=== PATIENT | female | born 1995 | race Caucasian/White ===

== ENCOUNTER → 2021-08-27 15:22 | Outpatient (BNVA) | payer OTHER, SELFPAY | PROVIDERS: Referring Provider Hospitalist; Visit Provider Physician Assistant ==

== ENCOUNTER → 2021-09-03 07:52 | Outpatient (BNVA) | payer OTHER, SELFPAY | PROVIDERS: Visit Provider Surgery ==

== ENCOUNTER 2021-09-06 06:12 | Outpatient (REF) | payer OTHER, SELFPAY ==
--- NOTE | ~2021-09-06 | XR_ITS ---
EXAMINATION: XR CHEST CLINICAL INFORMATION: Moderate/severe obesity due to excess calories COMPARISON: None TECHNIQUE: 2 views of the chest were obtained. FINDINGS: No significant abnormality is noted involving the heart, lungs, mediastinum, bony thorax or soft tissues. XR/XR chest 2V IMPRESSION: Unremarkable chest examination.
[2021-09-06 06:29] LABS: MANUAL DIFF FLAG NO
--- NOTE | 2021-09-06 06:35 | ECG_ITS ---
Test Reason : obesity Blood Pressure : / mmHG Vent. Rate : 067 BPM Atrial Rate : 067 BPM P-R Int : 146 ms QRS Dur : 078 ms QT Int : 396 ms P-R-T Axes : 042 020 032 degrees QTc Int : 418 ms Normal sinus rhythm with sinus arrhythmia Normal ECG No previous ECGs available Referred By: Elio Ferrer Electronically Signed By:CAROLINA PEREZ
[2021-09-06 07:36] LABS: Estimated Average Glucose 105 mg/dL; Hemoglobin A1c % 5.3 %
[2021-09-06 07:42] LABS: Basophils Absolute Auto 0.1 X10*3/uL (0.0-0.2); Basophils Percent Auto 0.6 % (0-2); Eosinophils Absolute Auto 0.4 X10*3/uL (0.0-0.4); Hematocrit 41.7 % (37.0-47.0); Hemoglobin 13.4 g/dl (12.0-16.0); Imm Gran Abs Auto 0.01 X10*3/uL (0.00-0.03); Imm Gran Pct Auto 0.1 % (0.0-0.4); Lymphocytes Absolute Auto 3.7 X10*3/uL (1.2-4.9); Mean Corpuscular HGB Conc 32.1 g/dl (31.0-35.0); Mean Corpuscular Hemoglobin 27.6 pg (27.0-33.0); Mean Platelet Volume 10.7 fL (9.4-12.3); Monocytes Absolute Auto 0.5 X10*3/uL (0.1-1.2); Monocytes Percent Auto 5.6 % (2-11); Neutrophils Absolute Auto 3.9 x10*3/uL (2.0-8.3); Neutrophils Percent Auto 45.7 % (45-73); Platelet Count 353 X10*3/uL (160-400); Red Blood Count 4.85 X10*6/uL (4.20-5.50); Red Cell Distribution Width 12.9 % (11.0-16.0); White Blood Count 8.5 X10*3/uL (4.8-10.8)
[2021-09-06 07:55] LABS: Alanine Aminotransferase 18 U/L (0-31); Albumin Level 4.4 g/dL (3.5-5.0); Alkaline Phosphatase 58 U/L (39-117); Anion Gap 12 (12-20); Aspartate Amino Transferase 17 U/L (5-31); Bilirubin Total 1.2 mg/dL (0.0-1.0); Blood Urea Nitrogen 13 mg/dL (9-16); C Reactive Protein 0.39 mg/dL (< or = 0.50); Calcium 9.4 mg/dL (8.4-10.2); Carbon Dioxide 26 mmol/L (22-29); Chloride 106 mmol/L (96-108); Cholesterol 197 mg/dL; Estimated Glomerular Filt Rate > 60; Glucose Random 89 mg/dL (60-115); HDL Cholesterol 42 mg/dL; Iron 98 mcg/dL (30-160); LDL Cholesterol Calculated 130 mg/dl; Percent Iron Saturation 24 % (15-50); Potassium 4.2 mmol/L (3.3-5.1); Sodium 140 mmol/L (135-145); Total Iron Binding Capacity 409 mcg/dL (228-428); Total Protein 7.3 g/dL (6.5-8.0); Triglycerides 125 mg/dL; Unsaturated Iron Binding 311 ug/dL
[2021-09-06 08:18] LABS: Insulin 9 uU/mL (2-29); TSH reflex Free T4 4.79 uIU/mL (0.32-4.0); Vitamin D 25-OH Total 11.1 ng/mL (>30)
[2021-09-06 08:29] LABS: Folate 11.6 ng/mL (> or = 4.0); Vitamin B12 480 pg/mL (200-900)
[2021-09-06 08:31] LABS: Ferritin 34 ng/mL (10-122)
[2021-09-06 09:11] LABS: Free T4 (Free Thyroxine) 0.94 ng/dL (0.71-1.85)
[2021-09-07 15:05] LABS: PTHI 69 pg/mL (14-64)
[2021-09-09 06:51] LABS: Zinc 83 mcg/dL (60-130)
[2021-09-09 18:56] LABS: Vitamin B1 12 nmol/L (8-30)
[2021-09-09 19:42] LABS: Vitamin A 45 mcg/dL (38-98)
== END 2021-09-06 06:13 | disposition home or self-care (01) ==
LOC: HO.LAB 06:12
PROVIDERS: PCP Hospitalist; Visit Provider Surgery
DX: E66.01 Morbid (severe) obesity due to excess calories (principal)
CPT/HCPCS: 36415; 71046; 80053; 80061; 82306; 82607; 82728; 82746; 83036; 83525; 83540; 83970; 84425; 84439; 84443; 84590; 84630; 85025; 86140; 93005

== ENCOUNTER 2021-09-20 08:37 | Outpatient (REF) | payer OTHER, SELFPAY ==
[2021-09-21 13:40] LABS: H Pylori Breath Test Negative (Negative)
== END 2021-09-20 08:38 | disposition home or self-care (01) ==
LOC: HO.LNP 08:37
PROVIDERS: Surgery; PCP Hospitalist; Referring Provider Hospitalist; Visit Provider Physician Assistant
DX: E66.01 Morbid (severe) obesity due to excess calories (principal)
CPT/HCPCS: 83013

== ENCOUNTER → 2021-10-06 08:13 | Outpatient (BNVA) | payer OTHER, SELFPAY | PROVIDERS: PCP Hospitalist; Visit Provider Surgery ==

== ENCOUNTER → 2021-10-12 08:08 | Outpatient (BNVA) | payer OTHER, SELFPAY | PROVIDERS: PCP Hospitalist; Visit Provider Dietitian, Registered | DX: E66.9 Obesity, unspecified (principal); Z68.39 Body mass index [BMI] 39.0-39.9, adult | CPT/HCPCS: 97802 ==

== ENCOUNTER 2021-10-25 08:12 | Outpatient (REF) | payer OTHER, SELFPAY ==
--- NOTE | ~2021-10-25 | US_ITS ---
EXAMINATION: US COMPLETE ABDOMEN WITH LIVER ELASTOGRAPHY CLINICAL INFORMATION: Obesity COMPARISON: None TECHNIQUE: Real-time imaging of the abdominal viscera. Noninvasive ultrasound liver fibrosis assessment is performed using Rupali ElastPQ point quantification shear wave elastography (2D-SWE) with a C5-2 MHz transducer. Multiple elastography samples are obtained. FINDINGS: PANCREAS: Not well visualized due to bowel gas. ABDOMINAL AORTA: The proximal, middle, and distal aortic segments are normal in caliber. INFERIOR VENA CAVA: Visualized portions are normal. LIVER: Liver echotexture is slightly increased. There is a 2.4 x 1.4 x 2.4 cm hyperechoic lesion in the right lobe of the liver. No other focal liver lesion is seen. There is no biliary duct dilatation. The right lobe measures 15 cm in length. The left lobe measures 10 cm in length. Portal flow is normal/hepatopedal. Shear wave liver elastography median stiffness is 1.6 m/s (reference: normal median stiffness is 1.3 m/s or less). IQR/median stiffness to assess sampling precision is 0.14 (reference: good quality data set is IQR/median stiffness of 0.15 or less). GALLBLADDER: There may be a phrygian cap. The gallbladder is physiologically distended without evidence of stones, sludge, polyps, wall thickening or pericholecystic fluid. COMMON BILE DUCT: Normal in caliber measuring 0.2 cm in diameter. RIGHT KIDNEY: Normal. No hydronephrosis. No renal calculi or focal parenchymal lesions. The kidney measures 11.8 cm in maximum dimension. LEFT KIDNEY: There are echogenic densities in the cortex of the kidney questionable for cortical calcifications versus stones. The largest measures 5 mm. No hydronephrosis. No renal calculi or focal parenchymal lesions. The kidney measures 11 cm in maximum dimension. SPLEEN: Normal. The spleen measures 10 cm in maximum dimension. FREE FLUID: None. US/US abdomen comp w elastography IMPRESSION: 1. Slightly echogenic liver probably representing fatty infiltration. 2.4 x 1.4 x 2.4 cm echogenic lesion in the right lobe of the liver. This may represent a benign hemangioma. This could be confirmed with liver MRI if clinically indicated. Question cortical calcifications versus stones in the left kidney. Limited visualization of the pancreas. 2. Liver elastography: Adequate liver sampling. In the absence of other known clinical signs, rules out compensated advanced chronic liver disease. REFERENCE: Society of Radiologists in Ultrasound Liver Stiffness Thresholds (2020): LIVER STIFFNESS THRESHOLDS: *Liver Stiffness equal or less than 1.3 m/s: High probability of being normal. *Liver Stiffness less than 1.7 m/s: In the absence of other known clinical signs, rules out compensated advanced chronic liver disease. *Liver Stiffness 1.7-2.1 m/s: Suggestive of compensated advanced chronic liver disease but need further test for confirmation. *Liver Stiffness over 2.1 m/s: Rules in compensated advanced chronic liver disease. *Liver Stiffness over 2.4 m/s: Suggestive of clinically significant portal hypertension. QUALITY OF DATA SET: *IQR/Median value equal or less than 0.15 implies a quality data set. *IQR/Median value over 0.15 implies a poor quality data set. SIGNIFICANT CHANGE FROM PRIOR EXAM: Significant change if liver stiffness measurement is 10% or greater from prior exam. OTHER CONSIDERATIONS: The stage of liver fibrosis may be overestimated in the setting of acute hepatitis, liver inflammation, elevated liver function tests, hepatic vascular congestion, obstructive cholestasis, nonfasting state, and infiltrative diseases such as amyloidosis and lymphoma. In some patients with NAFLD, the liver stiffness thresholds for compensated advanced chronic liver disease may be lower. In causes other than viral hepatitis and NAFLD, liver stiffness thresholds are not well established.
--- NOTE | ~2021-10-25 | FL_ITS ---
EXAMINATION: XR FLUOROSCOPY UPPER GI WITH AIR CLINICAL INFORMATION: Moderate/severe obesity due to excess calories. COMPARISON: None. TECHNIQUE: Routine upper GI air-contrast study was performed. FINDINGS: Following oral administration of thick barium and effervescent granules, there is normal propagation of bolus from the oral cavity through the pharynx and esophagus and into the stomach without any evidence of obstruction, narrowing or stricture. On placing patient supine and prone lying, the course, caliber and peristalsis of the stomach, duodenal bulb and the sweep are normal. The mucosal pattern of the stomach and the duodenum is normal. No gastroesophageal reflux or hiatal hernia seen. FLUOROSCOPY TIME: 2.3 minutes DOSE AREA PRODUCT: 28.893 uGy-m2 (microgray-meter squared). FL/FL upper GI w air IMPRESSION: Unremarkable upper GI air-contrast study.
== END 2021-10-25 08:13 | disposition home or self-care (01) ==
LOC: HO.US 08:12
PROVIDERS: Visit Provider Surgery
DX: E66.01 Morbid (severe) obesity due to excess calories (principal)
CPT/HCPCS: 74246; 76705; 76981

== ENCOUNTER → 2021-11-10 08:10 | Outpatient (BNVA) | payer OTHER, SELFPAY | PROVIDERS: PCP Hospitalist; Visit Provider Surgery | DX: Z13.89 Encounter for screening for other disorder (principal) ==

== ENCOUNTER → 2021-12-08 08:15 | Outpatient (BNVA) | payer OTHER, SELFPAY | PROVIDERS: PCP Hospitalist; Visit Provider Surgery | DX: E66.9 Obesity, unspecified (principal) ==

== ENCOUNTER → 2021-12-10 12:53 | Outpatient (BNVA) | payer OTHER, SELFPAY | PROVIDERS: PCP Hospitalist; Referring Provider Hospitalist; Visit Provider Surgery | DX: Z13.89 Encounter for screening for other disorder (principal) ==

== ENCOUNTER 2021-12-16 10:47 | Inpatient (IN) | payer OTHER, SELFPAY ==
[2021-12-08 11:41] VITALS: BMI 35.6
[2021-12-09 06:30] LABS: MANUAL DIFF FLAG NO
[2021-12-09 06:53] LABS: Basophils Absolute Auto 0.1 X10*3/uL (0.0-0.2); Basophils Percent Auto 0.7 % (0-2); Eosinophils Absolute Auto 0.4 X10*3/uL (0.0-0.4); Eosinophils Percent Auto 4.7 % (0-4); Hematocrit 40.5 % (37.0-47.0); Hemoglobin 13.2 g/dl (12.0-16.0); Imm Gran Abs Auto 0.02 X10*3/uL (0.00-0.03); Imm Gran Pct Auto 0.3 % (0.0-0.4); Mean Corpuscular HGB Conc 32.6 g/dl (31.0-35.0); Mean Corpuscular Volume 85.8 fL (80.0-98.0); Mean Platelet Volume 11.8 fL (9.4-12.3); Monocytes Absolute Auto 0.5 X10*3/uL (0.1-1.2); Monocytes Percent Auto 6.7 % (2-11); Neutrophils Absolute Auto 3.7 x10*3/uL (2.0-8.3); Neutrophils Percent Auto 48.6 % (45-73); Platelet Count 267 X10*3/uL (160-400); Red Blood Count 4.72 X10*6/uL (4.20-5.50); Red Cell Distribution Width 13.3 % (11.0-16.0); White Blood Count 7.6 X10*3/uL (4.8-10.8)
[2021-12-09 07:07] LABS: INTERNATIONAL NORM RATIO 1.2 (0.9-1.1); Prothrombin Time 13.1 SEC (9.9-13.0)
[2021-12-09 07:10] LABS: Partial Thromboplastin Time 34.2 SEC (24.1-38.0)
[2021-12-09 07:31] LABS: Alanine Aminotransferase 80 U/L (0-31); Albumin Level 4.3 g/dL (3.5-5.0); Alkaline Phosphatase 56 U/L (39-117); Anion Gap 13 (12-20); Aspartate Amino Transferase 29 U/L (5-31); Bilirubin Total 1.4 mg/dL (0.0-1.0); Blood Urea Nitrogen 11 mg/dL (9-16); C Reactive Protein 0.24 mg/dL (< or = 0.50); Calcium 9.6 mg/dL (8.4-10.2); Carbon Dioxide 25 mmol/L (22-29); Chloride 106 mmol/L (96-108); Cholesterol 163 mg/dL; Creatinine Clr Calc Pharmacy 113.8; Estimated Glomerular Filt Rate > 60; Glucose Random 83 mg/dL (60-115); HDL Cholesterol 35 mg/dL; LDL Cholesterol Calculated 113 mg/dl; Potassium 3.8 mmol/L (3.3-5.1); Sodium 140 mmol/L (135-145); Total Protein 6.8 g/dL (6.5-8.0); Triglycerides 75 mg/dL
[2021-12-09 08:05] LABS: Estimated Average Glucose 100 mg/dL; Hemoglobin A1c % 5.1 %
[2021-12-10 11:05] LABS: Insulin 9 uU/mL (2-29)
--- NOTE | 2021-12-10 18:02 | MHC.SHP ---
Pre-Procedural Eval Section A Date of Service: 12/10/21 The patient is an INPATIENT: Yes The History & Physical has been completed within 30 days and I have reviewed it.: Yes Section B Chief Complaint: obesity Relevant Family History (Specify if Yes): No Relevant Social History: None Present Medications: None Medical History: No relevant PMH History of Previous Operations: No relevant previous surgery Allergies: Allergies Allergy/AdvReac Type Severity Reaction Status Date / Time oxycodone Allergy Mild Rash Verified 12/08/21 12:01 Review of Systems Sugical H&P ROS: Negative: Constitution, Cardiovascular, Respiratory, Neurological, Psychiatric, Hem-Onc, Allergic/Immunologic, Gastrointestinal, Genitourinary, Musculoskeletal, Integumentary, Endocrine and Eyes/Ears/Nose/Throat Exam Surgical H&P Exam: Normal: HEENT, Normal: Heart, Normal: Lungs, Normal: Extremities, Normal: Abdomen, Normal: Skin and Normal: Neurological Plan Diagnosis/Plan: Unchanged I have reviewed the history and physical and performed a pertinent physical examination on my patient. No changes have occurred unless specified.
--- NOTE | 2021-12-15 09:17 | HO.ANESPROP2 ---
Documented by User: Cee Baker NP 12/15/21 09:18 HPI - Anesthesia Eval Consult details Narrative: 26yo F for Gastrectomy Sleeve,EGD,poss diaphragmatic hernia,poss ventral hernia,poss open, PMFSH Active Problems Active Problems: All Active Problems (Updated 12/08/21 @ 12:02 by Elio Ferrer MD) BMI 36.0-36.9,adult (Acute) Vitamin D deficiency (Acute) Hypothyroidism (Acute) Adjustment disorder with mixed anxiety and depressed mood (Acute) Obesity (Acute) BMI 39.0-39.9,adult (Acute) BMI 37.0-37.9, adult (Acute) Back pain (Acute) Morbid obesity (Acute) Past Medical History Medical History (Updated 12/16/21 @ 12:54 by Elio Ferrer MD) Back pain Hypothyroidism IUD (intrauterine device) in place Liver fibrosis Morbid obesity Steatosis, liver Family History Family History (Updated 09/02/21 @ 12:44 by Nicole Arellano) Mother Thyroid condition Obesity Anxiety Depression Father No problems noted. Sister No problems noted. Son No problems noted. Surgical History Surgical History (Updated 12/16/21 @ 15:31 by DUSTIN Lentz) History of facial surgery History of wisdom tooth extraction, class I edentulism Hx of section Social History Social History (Updated 09/02/21 @ 12:44 by Nicole Arellano) Are you a primary care information associate to a significant other at home: Yes (4 yr old son) Do you presently have visiting nurse or other home services: No Alcohol intake: current Alcohol intake frequency: does not drink Patient Tobacco Use Status: Former Tobacco user Quit Date: 2016 Tobacco use type: Cigarette Use of substances other than those prescribed or required for medical reasons: No Currently Displaying Signs/Symptoms of Drug Intoxication Withdrawal: No Have you been hit, kicked, punched, or otherwise hurt by someone within the past year? If so, by whom?: No Are you DNR?: No Advance Directives: No Advance Directives Information Provided: Yes Advance Directives on File: No Recently lost weight without trying: No Patient : No FDLMP: 11/27/2021 : No Poor oral hygiene: No service: No Current occupational status: employed Meds Allergies Allergy/AdvReac Type Severity Reaction Status Date / Time oxycodone Allergy Mild Rash Verified 12/08/21 12:01 Exam Exam Date and Time: December 15, 2021 0917 Height,Weight and Vital Signs: Height 5 ft 2 in Weight 88.451 kg Pertinent Lab Results Pertinent Lab Results: Laboratory Tests 12/09/21 12/09/21 12/09/21 06:22 06:29 06:29 WBC 7.6 RBC 4.72 Hgb 13.2 Hct 40.5 MCV 85.8 MCH 28.0 MCHC 32.6 RDW 13.3 Plt Count 267 MPV 11.8 Immature Gran % (Auto) 0.3 Neut % (Auto) 48.6 Lymph % (Auto) 39.0 [place] % (Auto) 6.7 Eos % (Auto) 4.7 H Baso % (Auto) 0.7 Lymph # (Auto) 3.0 [place] # (Auto) 0.5 Eos # (Auto) 0.4 Baso # (Auto) 0.1 Abs Immat Gran (auto) 0.02 Absolute Neuts (auto) 3.7 Absolute Nucleated RBC 0.000 Nucleated RBC % (auto) 0.0 PT 13.1 H INR 1.2 H APTT 34.2 Sodium Potassium Chloride Carbon Dioxide Anion Gap BUN Creatinine Estim Creat Clear Calc Estimated GFR Random Glucose Estimat Average Glucose Hemoglobin A1c % Insulin Level Calcium Total Bilirubin AST ALT Alkaline Phosphatase C-Reactive Protein Total Protein Albumin Triglycerides Cholesterol LDL Cholesterol, Calc HDL Cholesterol TSH Blood Type A Positive Antibody Screen NEGATIVE 12/09/21 12/09/21 06:29 06:29 WBC RBC Hgb Hct MCV MCH MCHC RDW Plt Count MPV Immature Gran % (Auto) Neut % (Auto) Lymph % (Auto) [place] % (Auto) Eos % (Auto) Baso % (Auto) Lymph # (Auto) [place] # (Auto) Eos # (Auto) Baso # (Auto) Abs Immat Gran (auto) Absolute Neuts (auto) Absolute Nucleated RBC Nucleated RBC % (auto) PT INR APTT Sodium 140 Potassium 3.8 Chloride 106 Carbon Dioxide 25 Anion Gap 13 BUN 11 Creatinine 0.76 Estim Creat Clear Calc 113.8 Estimated GFR > 60 Random Glucose 83 Estimat Average Glucose 100 Hemoglobin A1c % 5.1 Insulin Level 9 Calcium 9.6 Total Bilirubin 1.4 H AST 29 D ALT 80 H Alkaline Phosphatase 56 C-Reactive Protein 0.24 Total Protein 6.8 Albumin 4.3 Triglycerides 75 Cholesterol 163 LDL Cholesterol, Calc 113 HDL Cholesterol 35 TSH 3.30 Blood Type Antibody Screen Assessment and Plan Assessment Anesthesia Assessment: Chart Reviewed Documented by User: Lefty Knox MD 12/17/21 13:14 [facility] Past Medical History Medical History (Updated 12/16/21 @ 12:54 by Elio Ferrer MD) Back pain Hypothyroidism IUD (intrauterine device) in place Liver fibrosis Morbid obesity Steatosis, liver Family History Family History (Updated 09/02/21 @ 12:44 by Nicole Arellano) Mother Thyroid condition Obesity Anxiety Depression Father No problems noted. Sister No problems noted. Son No problems noted. Family history of problems with anesthesia: No Surgical History Surgical History (Updated 12/16/21 @ 15:31 by DUSTIN Lentz) History of facial surgery History of wisdom tooth extraction, class I edentulism Hx of section History of Problems with Anesthesia: No Social History Social History (Updated 09/02/21 @ 12:44 by Nicole Arellano) Are you a primary care information associate to a significant other at home: Yes (4 yr old son) Do you presently have visiting nurse or other home services: No Alcohol intake: current Alcohol intake frequency: does not drink Patient Tobacco Use Status: Former Tobacco user Quit Date: 2016 Tobacco use type: Cigarette Use of substances other than those prescribed or required for medical reasons: No Currently Displaying Signs/Symptoms of Drug Intoxication Withdrawal: No Have you been hit, kicked, punched, or otherwise hurt by someone within the past year? If so, by whom?: No Are you DNR?: No Advance Directives: No Advance Directives Information Provided: Yes Advance Directives on File: No Recently lost weight without trying: No Patient : No FDLMP: 11/27/2021 : No Poor oral hygiene: No service: No Current occupational status: employed Meds Allergies Allergy/AdvReac Type Severity Reaction Status Date / Time oxycodone Allergy Mild Rash Verified 12/08/21 12:01 Exam Airway Mallampati Class: II TM Dist: >3cm Neck ROM: Full Loose/Missing/Broken Teeth: No Assessment and Plan Assessment Anesthesia Assessment: Anesthesia Plan Discussed Final Anesthetic Review Family History of Problems with Anesthesia: No History of Problems with Anesthesia: No NPO: Yes ASA Class: II Final Preanesthetic Review: No Changes in Pt Med Stat, Meds/Allgs Chart Reviewed, Consent Obtained/Reviewed and Anes Risks/Benef Reviewed Patient Risk: Intermediate Procedure Risk: Intermediate Anesthetic Plan Anesthetic Plan: GA and Agree w/ Assess. and Plan Disposition: Standard PACU
[2021-12-15 12:54] LABS: COVID-19 Test Negative (Negative)
[2021-12-16] VITALS (10 sets, daily range): BP systolic 107–126; BP diastolic 68–83; PULSE 93–124; RESP 14–23; TEMP 36.7–37; O2SAT 97–100
--- NOTE | 2021-12-16 11:47 | PHA.MEDREC ---
Pharmacy Consult ? Medication Reconciliation Pharmacy has reviewed the medication reconciliation.
[2021-12-16 12:44] LABS: UPreg QC Valid YES; Urine Pregnancy NEGATIVE (NEGATIVE)
--- NOTE | 2021-12-16 12:50 | PM.OP ---
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 The program is a phased program with a special focus on preoperative medical weight management to promote substantial weight loss and prepare the patients for the second phase of the program: bariatric surgery. The patient participated in an intensive weekly lifestyle ?intervention and exercise program during which the patient ?has lost between the initial office visit and the last preoperative visit 33.4 lbs, or 14.7% of initial actual body weight. It was deemed appropriate for the patient to now have bariatric surgery. In light of the current Covid-19 pandemic and the well documented strong association of obesity and increased risk of worse outcomes if infected with Covid-19 (REFERENCES:https://pubmed.ncbi.nlm.nih.gov/24911279/,?https://pubmed.ncbi.nlm.nih.gov/65320033/), any delay in undergoing bariatric surgery may lead to the patient's worsening health condition and increased?risk of more severe Covid-19 disease if infected. In addition a recent?study from [facility] published in [employer] on 08/02/2021 ([email or web address]) found that, among patients with obesity, substantial weight loss achieved with surgery was associated with improved outcomes of COVID-19 infection. The findings suggest that obesity can be a modifiable risk factor for the severity of COVID-19 infection. In addition, the patient met the BMI-criteria for bariatric surgery based on the BMI on initial presentation. The patient should not be penalized for achieving such weight loss because ?it is not sustainable long-term without surgical intervention and it was achieved in preparation for bariatric surgery ?under my direction and based on my published research ([email or web address]).[email or web address] and?https://www.soard.org/article/[email or web address](90)62730-X/pdf) ?that a 10% preoperative weight loss improves long-term weight loss after surgery and reduces perioperative complications.? Insurance carriers such as [employer] have endorsed my recommendations ?and have included in their policies criteria to include a 10% preoperative weight loss requirement. PROCEDURE: Esophago-gastroscopy,, laparoscopic lysis of adhesions, laparoscopic sleeve gastrectomy and laparoscopic gastropexy INDICATIONS: This is a 26 year-old female who was electively scheduled for laparoscopic, possibly open sleeve gastrectomy. The risks and complications of the procedure were discussed with the patient in advance, particularly the possibility of ; pulmonary embolism; staple line leak; bleeding; GERD; cardiac, pulmonary, or renal complications; as well as long-term problems such as insufficient weight loss, vitamin deficiency, strictures, or ulcers. The patient understood all the risks, and was in agreement to proceed with surgery. DESCRIPTION OF PROCEDURE: After informed consent was obtained from the patient, the patient was given preoperative antibiotics, and was transferred to the operating room. After successful induction of general anesthesia, pneumatic compression devices were placed on both lower extremities. An upper endoscopy was performed next. The oropharynx and esophagus appeared to be within normal limits. There was no diaphragmatic hernia present, consistent with the findings of the preoperative upper GI. The stomach was entered. Then after all fluid and air were suctioned and the stomach was fully decompressed, the scope was withdrawn and secured in the mid esophagus. The patient was then prepped and draped in the usual sterile manner, and abdominal access was established at the right upper quadrant with the Gianni technique. A 12 mm blunt port was inserted, and the abdomen was insufflated with CO2 to a pressure of 15 mmHg. Under direct visualization, additional ports were placed, specifically two 5 mm Versi-step ports to the left upper quadrant, and a 5 mm Versi-Step port to the right upper quadrant. 1% lidocaine plain was used to infiltrate all port sites as well as all fascia defects. Following that, the patient was placed in a steep reverse Trendelenburg position. An additional 5 mm port was placed to the right flank for the Mediflex retractor that was used to retract the left lobe of the liver. The gastro-esophageal fat pad was opened with the ultrasonic device (Thunderbeat, Olympus) and the anterior esophagus and hiatus were exposed. The angle of His was opened with the ultrasonic device the fundus of the stomach from any diaphragmatic and splenic attachments. I then opened the gastrocolic ligament between the transverse colon and the greater curvature of the stomach with the ultrasonic device to enter the lesser sac and facilitate the ligation of the short gastric vessels. I started at a mid-point along the greater curvature and using the Thunderbeat, all short gastric vessels were divided all the way to the angle of His until the left truong was completely dissected at its entirety. I then divided the gastro-colic ligament distally to a distance of about 3-4 cm proximal to the pylorus. There were extensive congenital adhesions between the pancreas and posterior gastric wall. Those were lysed completely with the ultrasonic device. Adhesiolysis took approximately 45 min to complete. The stomach was then divided transversely with one Endo PRERNA-45 purple, and three PRERNA-60 articulating orange loads using the AEON stapler and loads. Every effort was made that the gastric sleeve had a tubular shape and an even caliber throughout. Once the sleeve resection was completed, the staple line of the gastric sleeve was reinforced with Hemoclips. The resected stomach was retrieved without difficulty from the Gianni port. A gastropexy was then performed in order to prevent postoperative GERD and partial gastric volvulus. Several interrupted 2.0 Surgidac sutures were placed between the sleeve's staple line and the previously divided greater omentum and gastro-colic ligament using the Endo-Stitch device. ?An upper endoscopy was performed. There was no narrowing at the GE junction. The scope was easily advanced all the way to the pylorus which was clearly visualized. There was no narrowing anywhere and the sleeve's caliber was even throughout. The sleeve's staple line was inspected and there was no evidence of ischemia, bleeding or dehiscence. At that point the gastroscope was withdrawn from the patient?s mouth while we were decompressing the bowel and the stomach from any remaining air. I looked into the lesser sac to see how the sleeve was situating and it was situating well. There was no bleeding from the staple line, spleen, or short gastric vessels. The Mediflex retractor was removed, and the undersurface of the liver was inspected and there was no bleeding. The patient was placed in supine position. I closed the fascial defect of the 12 mm port site with a figure of eight #1 Polysorb suture. Then 100 cc 0.25 % Marcaine plain with 10 mg of Dexamethasone were used to infiltrate the fascial closure as well as all skin incisions. A total of 5ml of Zynrelef was applied in the Gianni wound. At this point, the abdomen was deflated, all ports were removed under direct vision, and no bleeding was noted from any of the port sites. The skin incisions were irrigated with saline and were closed with 4-0 absorbable monofilament sutures. Steri-Strips and OpSites were used to cover all incisions. The patient was extubated and was transferred in stable condition to the recovery room for further care. I was present and performed all samson parts of the procedure. Gudino was the funeral assistant. There were no residents to assist with this case. Niels Ferrer MD, PhD, FACS Surgeon: Elio Ferrer MD Anesthesia: GETA, local and other (TAP block & 5ml Zynrelef) Was an Coremaker Experimental used for this Procedure?: No Coremaker Experimental: Luca Gudino Estimated blood loss (mL): 10 IV fluids (mL): 2,800 Urine output (mL): 0 (No [place] to record) Pathology: other (Stomach) Condition: stable Disposition: PACU
--- NOTE | 2021-12-16 12:53 | PM.PNGS ---
Subjective Subjective Date of Service: 12/17/21 Interval history: Patient has mild incisional pain, but was able to ambulate and use the incentive spirometer. She is tolerating phase 1 bariatric diet Physical Exam Vital Signs: Vital Signs: Last Vital Signs Temp 98.6 F 12/16/21 11:13 Pulse 108 H 12/16/21 11:13 Resp 18 12/16/21 11:13 BP 119/75 12/16/21 11:13 Pulse Ox 98 12/16/21 11:13 BMI result Body Mass Index 35.6 GI: Inspection: Yes normal to inspection, Yes incision (clean, dry and intact) and Yes obesity Extrem: Right lower extremity: normal to inspection (no calf tenderness) Left lower extremity: normal to inspection (no calf tenderness) Objective Data Active Medications Albuterol Sulfate (Albuterol Sulfate (0.083%) 2.5 Mg/3 Ml Vial.Neb) 2.5 mg INHALE ONCE PRN PRN Reason: Shortness of Breath/Wheezing Lactated Ringer's (Lr) 1,000 mls @ 100 mls/hr IVCONT .Q10H SAJI Labs CBC & Chem 7: 12/17/21 06:26 12/17/21 06:26 Labs: Laboratory Results - last 24 hr 12/15/21 12/16/21 12:24 12:16 Urine Test NEGATIVE COVID-19 (LING) Negative COVID-19 Clin Com See Note Procedures Date of Service Date of Service: 12/17/21 Progress Note: A&P Assessment and plan (1) Obesity: Status: Acute Assessment and Plan: s/p laparoscopic sleeve gastrectomy, lysis of adhesions and gastropexy Doing well Check am labs. If OK, will discharge home (2) BMI 35.0-35.9,adult: Status: Acute (3) Hypothyroidism: Status: Acute (4) Back pain: Status: Acute (5) Steatosis, liver: Status: Acute (6) Liver fibrosis: Status: Acute (7) S/P laparoscopic sleeve gastrectomy: Status: Acute Time Spent With Patient Time: Total time spent is greater than 50% in coordination of care (as documented) at patient's floor/unit and/or counseling patient: Quality Stroke Does the patient have a stroke diagnosis?: No VTE Prior VTE?: No VTE Risk Level:: Surgical - moderate VTE Device Contraindication: N/A - Device Ordered VTE Drug Contraindication: Treatment Not Indicated
--- NOTE | 2021-12-16 15:34 | P.DS_ITS ---
DS: Providers Provider Date of Service: 12/17/21 Date of admission: 12/16/21 10:47 Primary care physician: Murali Miles DS: Diagnosis Discharge Diagnosis (1) Obesity: Status: Acute (2) BMI 35.0-35.9,adult: Status: Acute (3) Hypothyroidism: Status: Acute (4) Back pain: Status: Acute (5) Steatosis, liver: Status: Acute (6) Liver fibrosis: Status: Acute DS: Summary Hospital Course Hospital Course: ADMITTING DIAGNOSIS: obesity, hypothyroid ? DISCHARGE DIAGNOSIS: same, s/p laparoscopic sleeve gastrectomy ? PAST SURGICAL HISTORY: cesarian section, facial surgery as a child ? PROCEDURE: upper endoscopy, laparoscopic sleeve gastrectomy ? DISCHARGE SUMMARY: ? History of Present Illness: ? The patient is a?26 year-old woman with a BMI of?41.3 kg/m2 and associated co- morbidities as described above. The patient had extensive work-up,lost?31 lbs preoperatively and was electively scheduled for laparoscopic, possible open sleeve gastrectomy and gastropexy. Risks and complications of the surgery were discussed with the patient in advance, particularly the possibility of , pulmonary embolism, anastomotic leak, bleeding, bowel injury, GERD, cardiac, renal or pulmonary complications. The patient understood all the risks and was in agreement with the surgical plan. ? Hospital Course: ? The patient underwent an uneventful laparoscopic sleeve gastrectomy with gastropexy on the day of admission. Postoperatively, the patient was transferred to the surgical floor. The patient received IV Acetaminophen and IV dilaudid for pain control. Patient was started on bariatric phase 1 diet POD #0. On postoperative day one, the patient was feeling well without nausea, vomiting, fevers, or tachycardia. The patient had some mild incisional pain and the abdomen was soft. ? On the morning of postoperative day one, the patient was continued on 1 ounce of water or ice every half hour. During the day, the patient did fairly well, having some incisional pain, but able to ambulate adequately and to tolerate liquids well. ? Since the patient is doing well, we decided that the patient was ready to be discharged. The patient was given instructions to follow-up with me next week and to call my office for any fever over 101, persistent abdominal pain, nausea, vomiting, GERD, symptoms of DVT such as calf tenderness, or leg swelling, or pulmonary embolism such as chest pain or shortness of breath. The patient was also instructed to drink 40-60 ounces of liquids per day using the 1-ounce cups. The patient had been given prescriptions for Tylenol for pain, Zofran prn for nausea, and pantoprazole and carafate previously. The patient was encouraged to ambulate and use the incentive spirometer. The patient was allowed to shower, but no baths, and encouraged to stay active at home. All of these instructions were given to the patient personally. All questions were answered and the patient understood all instructions, the instructions were also given to the patient in print. Time Spent with Patient Time attestation: Total time spent providing and/or coordinating discharge services: Discharge coordination time: Less than 30 minutes Quality: Safe Use of Opioids Does Pt have an Active Cancer Diagnosis on the Problem List?: No Quality: Stroke Does the patient have a stroke diagnosis?: No Physical Exam Vital Signs: Vital Signs: Last Vital Signs Temp 98.6 F 12/16/21 15:24 Pulse 124 H 12/16/21 15:24 Resp 15 12/16/21 15:24 BP 126/83 12/16/21 15:24 Pulse Ox 100 12/16/21 15:24 BMI result Body Mass Index 35.6 DS: Data Data Completed and Pending Pending studies at discharge: Pending at discharge 12/16/21 14:44 Surgical [PTH] Routine Labs on day of discharge: Laboratory Results - last 24 hr 12/16/21 12:16 Urine Test NEGATIVE Discharge Plan Discharge Patient Disposition: Home, Self-Care Discharge Diagnosis: s/p laparoscopic sleeve gastrectomy Referrals: Murali Miles [Primary Care Provider] - 1 Week Discharge Medications: Continued levothyroxine 25 mcg capsule 25 mcg PO DAILY Qty: 30 2RF ondansetron HCl 4 mg tablet 4 mg PO Q12H Qty: 20 0RF Discontinued cholecalciferol (vitamin D3) 125 mcg (5,000 unit) capsule 125 mcg PO DAILY Qty: 30 2RF Discharge Orders: Discharge Order (Routine); Ordered 12/17/21 Ordered By: Elio Ferrer Diet: other Activity on Discharge: No heavy lifting Stand Alone Forms: Patient Portal Discharge page Care Plan Goals: weight loss Health Concerns: obesity Plan of Treatment: No tub baths, sex or returning to work until discussed at first post op appointment. No exercise, alcohol, tobacco or illegal drug use. Continue to use incentive spirometer hourly while awake. Walk in home for 5- 10 minutes every 2 hours during the first week. Follow all instructions in the bariatric handbook and call with any questions.Discharge Instructions 1. Please call your doctor or come back to the emergency room should any new symptoms arise. 2. You will receive a courtesy call from [facility] 24-48 hours after discharge. 3. Activity: abstain from alcohol, practice limited stair climbing, no bending, no driving, no exercise, no illicit substances, no lifting, no sex, no tub bath, no work. 4. Diet: continue as discussed with Dr. Ferrer. 5. Dressing Change/Wound Care: Your incision is covered by clear bandages and guaze underneath. If the area is tender, you may apply an ice pack for short intervals (no more than 20 minutes on, followed by at least 20 minutes off). Do not apply heat. Do not use creams, lotions, or topical antibiotics unless instructed to do so by your surgeon. These can cause infection or allergic reaction. 6. Call your doctor if: - Your temperature exceeds 101.5 F - You experience excessive pain or swelling - You have an unexpected reaction to medication - You have excessive bleeding - You experience continued vomiting/nausea - Your incision begins to separate - Your incision shows signs of infection such as increased redness, swelling, excessive pain, heat, or drainage (light blood or clear fluid is normal) 7. General instructions: No lifting greater than 5 lbs for the next 4 weeks[address] driving within 24 hours of taking narcotic pain medications. If you do not move your bowels in the next 2 days, please take milk of magnesia over the counter. Please follow the post op diet and do not advance your diet until you are seen in the office in about 2 weeks. Please walk around your home every hour or two to prevent blood clots from forming in your legs. You do not need to wake from sleeping to walk. Please sleep in a bed or couch to prevent kinking at the hips and knees. Please take your incentive spirometer (your lung potato chip sorter) home with you and use it for the next few days to prevent pneumonias. You may shower, no hot tubs, baths or swimming pools. Please call the office with any questions or concerns such as increasing abdominal pain, fever, chills, shortness of breath, chest pain, leg pain or swelling, or redness or drainage from your incisions. Please stay on stage 3 diet which includes sugar free clear liquids such as ice pops and jello and broth and crystal light. Avoid all carbonation. Please drink 3 protein shakes with at least 25-30 grams of protein daily or 3 of the Magalis ebrate 4:1 shakes which can be purchased in our office. The Celebrate shakes have all of the bariatric vitamins you need if you consume these shakes. If you are drinking other protein shakes, you will need to purchase the Celebrate multivitamins and calcium that we provide in the office (they will provide all the vitamins you need). Please make sure you are consuming at least 40-60 ounces of water in addition to your 3 protein shakes daily. Do not hesitate to contact the office with any questions at . The patient's medical history has been reviewed and they are considered low risk for post op DVT and therefore DVT prophylaxis is not considered necessary. Travel after surgery was reviewed. The patient has not disclosed any travel plans during the first 30 days after surgery and they have been advised that within the first 30 days after surgery any bus, plane, train or car travel over 2 hours in duration is contraindicated due to the possibility of developing bloo d clots from immobility. Any travel, needs to include periods of ambulation of 10 minutes in duration every 2 hours.? The patient was instructed to discuss any plans for travel during this period with their bariatric surgeon. Assessment: stable, s/p laparoscopic sleeve gastrectomy
[2021-12-16 15:50] LABS: Hematocrit 38.3 % (37.0-47.0); Hemoglobin 12.6 g/dl (12.0-16.0)
[2021-12-16 16:08] LABS: Anion Gap 16 (12-20); Blood Urea Nitrogen 9 mg/dL (9-16); Calcium 8.8 mg/dL (8.4-10.2); Carbon Dioxide 20 mmol/L (22-29); Chloride 103 mmol/L (96-108); Creatinine Clr Calc Pharmacy 113.8; Estimated Glomerular Filt Rate > 60; Glucose Random 94 mg/dL (60-115); Potassium 4.2 mmol/L (3.3-5.1); Sodium 135 mmol/L (135-145)
[2021-12-16] MEDS: Famotidine/PF 20 MG/2 ML VIAL IVPUSH ×2 (16:10→20:38)
[2021-12-16] MEDS: Metoclopramide HCl 10 MG/2 ML VIAL IVPUSH (16:19)
[2021-12-16] MEDS: Lactated Ringers 1,000 ML 100 ML IVCONT (17:10)
--- NOTE | 2021-12-16 17:54 | PHA.MEDREC ---
Pharmacy Consult ? Medication Reconciliation Pharmacy has completed the medication reconciliation.
[2021-12-16] MEDS: ceFAZolin Sodium/Dextrose,Iso 2 GM/50 ML PIGGYBACK IV (19:38)
[2021-12-16] MEDS: 0.9 % Sodium Chloride Flush 3 ML SYRINGE IVFLUSH (20:38)
[2021-12-16] MEDS: ondansetron HCL 4 MG/2 ML VIAL IVPUSH (23:15)
[2021-12-17 00:07] VITALS: BP 116/69; PULSE 65; RESP 17; TEMP 36.1; O2SAT 96
[2021-12-17] MEDS: Lactated Ringers 1,000 ML 100 ML IVCONT (01:13)
[2021-12-17 04:00] VITALS: BP 118/76; PULSE 87; RESP 17; TEMP 36.9; O2SAT 96
[2021-12-17] MEDS: Levothyroxine Sodium 25 MCG TABLET PO (06:06)
[2021-12-17] MEDS: ondansetron HCL 4 MG/2 ML VIAL IVPUSH (06:07)
[2021-12-17 06:30] LABS: MANUAL DIFF FLAG NO
[2021-12-17 06:47] LABS: Basophils Percent Auto 0.1 % (0-2); Hematocrit 38.4 % (37.0-47.0); Hemoglobin 12.5 g/dl (12.0-16.0); Imm Gran Abs Auto 0.05 X10*3/uL (0.00-0.03); Imm Gran Pct Auto 0.5 % (0.0-0.4); Lymphocytes Percent Auto 8.8 % (20-40); Mean Corpuscular HGB Conc 32.6 g/dl (31.0-35.0); Mean Corpuscular Hemoglobin 27.5 pg (27.0-33.0); Mean Corpuscular Volume 84.4 fL (80.0-98.0); Mean Platelet Volume 11.9 fL (9.4-12.3); Monocytes Absolute Auto 0.6 X10*3/uL (0.1-1.2); Monocytes Percent Auto 5.2 % (2-11); Neutrophils Absolute Auto 9.5 x10*3/uL (2.0-8.3); Neutrophils Percent Auto 85.4 % (45-73); Platelet Count 283 X10*3/uL (160-400); Red Blood Count 4.55 X10*6/uL (4.20-5.50); Red Cell Distribution Width 13.5 % (11.0-16.0); White Blood Count 11.1 X10*3/uL (4.8-10.8)
[2021-12-17 06:54] LABS: Anion Gap 14 (12-20); Blood Urea Nitrogen 6 mg/dL (9-16); Calcium 9.3 mg/dL (8.4-10.2); Carbon Dioxide 20 mmol/L (22-29); Chloride 105 mmol/L (96-108); Creatinine Clr Calc Pharmacy 115.3; Estimated Glomerular Filt Rate > 60; Glucose Random 109 mg/dL (60-115); Potassium 4.4 mmol/L (3.3-5.1); Sodium 135 mmol/L (135-145)
[2021-12-17 07:06] VITALS: BP 118/73; PULSE 77; RESP 18; TEMP 36.8; O2SAT 96
--- NOTE | 2021-12-17 09:49 | HO.POSTANES ---
Post Anesthesia Evaluation Post Anesthesia Evaluation Vital Signs: Vital Signs Temp Pulse Resp BP Pulse Ox 12/17/21 07:06 98.3 F 77 18 118/73 96 12/17/21 04:00 98.5 F 87 17 118/76 96 12/17/21 00:07 97.0 F 65 17 116/69 96 Anesthesia: General Endotracheal-GETA Mental Status: Awake Pain Control: Satisfactory Nausea/Vomiting: None Hydration: Adequate Anesthesia-Related Issues: No Anes. Related Issues
[2021-12-17] MEDS: Famotidine/PF 20 MG/2 ML VIAL IVPUSH (09:52)
--- NOTE | 2021-12-17 10:19 | MHC.CM.PN ---
EMR REVIEWED, PT ADMITTED S/P LAP SLEEVE GASTRECTOMY, CM MET W/PT WHO REPORTS SHE LIVES W/ AND 1YO, PT REPORTS SHE IS FULLY INDEP, DENIES USE OF DME/HOME SERVICES, PT'S PCP ON FILED RETIRED AND PT NOW SEES RAQUEL FOX, [employer] INST[employer]ER, PT EDUCATED ON AND DECLINES TO COMPLETE HCP, PFIZER X3. D/C PLAN: HOME TODAY SELF-CARE, FOR TRANSPORT
[2021-12-17 11:21] VITALS: BP 113/71; PULSE 83; RESP 18; TEMP 36.3; O2SAT 96
== END 2021-12-17 13:00 | disposition home or self-care (01) | DRG 621 ==
LOC: HO.SSSA 15:34 → HO.S3 15:45
PROVIDERS: Nurse Practitioner; Physician Assistant Surgical; Admitting Provider Surgery; PCP Nurse Practitioner Family; Visit Provider Surgery
PROC: 0DB64Z3 Excision of Stomach, Percutaneous Endoscopic Approach, Vertical (ICD-10-PCS; CPT 43845; principal; 2021-12-16 12:50)
DX: E66.01 Morbid (severe) obesity due to excess calories (principal); E03.9 Hypothyroidism, unspecified; K66.0 Peritoneal adhesions (postprocedural) (postinfection); M54.9 Dorsalgia, unspecified; K76.0 Fatty (change of) liver, not elsewhere classified; K74.00 Hepatic fibrosis, unspecified; Z68.35 Body mass index [BMI] 35.0-35.9, adult; Z20.822 Contact with and (suspected) exposure to COVID-19; Z87.891 Personal history of nicotine dependence; Z79.890 Hormone replacement therapy; Z79.899 Other long term (current) drug therapy
CPT/HCPCS: 36415; 80048; 80053; 80061; 81025; 83036; 83525; 84443; 85014; 85018; 85025; 85610; 85730; 86140; 86850; 86900; 86901; 87635; 88307; 88342; 99024; A4649; C9399; J0131; J0690; J1100; J1170; J2250; J2370; J2405; J2550; J2765; J3010

== ENCOUNTER → 2021-12-23 12:52 | Outpatient (BNVA) | payer OTHER, SELFPAY | PROVIDERS: PCP Hospitalist; Visit Provider Physician Assistant Surgical | DX: Z13.89 Encounter for screening for other disorder (principal) ==

== ENCOUNTER → 2022-01-20 09:54 | Outpatient (BNVA) | payer OTHER, SELFPAY | PROVIDERS: PCP Hospitalist; Visit Provider Dietitian, Registered | DX: E66.9 Obesity, unspecified (principal); Z68.31 Body mass index [BMI] 31.0-31.9, adult | CPT/HCPCS: 97803 ==

== ENCOUNTER → 2022-02-03 09:11 | Outpatient (BNVA) | payer OTHER, SELFPAY | PROVIDERS: PCP Hospitalist; Referring Provider Physician Assistant Surgical; Visit Provider Dietitian, Registered | DX: E66.9 Obesity, unspecified (principal); Z68.30 Body mass index [BMI] 30.0-30.9, adult | CPT/HCPCS: 97803 ==

== ENCOUNTER → 2022-02-17 14:15 | Outpatient (BNVA) | payer OTHER, SELFPAY | PROVIDERS: PCP Hospitalist; Referring Provider Surgery; Visit Provider Dietitian, Registered | DX: E66.9 Obesity, unspecified (principal); Z68.30 Body mass index [BMI] 30.0-30.9, adult | CPT/HCPCS: 97803 ==

== ENCOUNTER → 2022-03-18 09:35 | Outpatient (BNVA) | payer OTHER, SELFPAY | PROVIDERS: PCP Hospitalist; Referring Provider Surgery; Visit Provider Dietitian, Registered | DX: E66.3 Overweight (principal) | CPT/HCPCS: 97803 ==

== ENCOUNTER → 2022-04-18 09:18 | Outpatient (BNVA) | payer OTHER, SELFPAY | PROVIDERS: Referring Provider Surgery; Visit Provider Dietitian, Registered | DX: E66.3 Overweight (principal); Z68.26 Body mass index [BMI] 26.0-26.9, adult | CPT/HCPCS: 97803 ==

== ENCOUNTER → 2022-05-09 10:39 | Outpatient (BNVA) | payer OTHER, SELFPAY | PROVIDERS: Referring Provider Dietitian, Registered; Visit Provider Counselor Mental Health | DX: F43.23 Adjustment disorder with mixed anxiety and depressed mood (principal); Z98.84 Bariatric surgery status | CPT/HCPCS: 90834 ==

== ENCOUNTER → 2022-05-23 09:59 | Outpatient (BNVA) | payer OTHER, SELFPAY | PROVIDERS: Visit Provider Dietitian, Registered | DX: E66.3 Overweight (principal); Z68.25 Body mass index [BMI] 25.0-25.9, adult | CPT/HCPCS: 97803 ==

== ENCOUNTER 2022-06-09 08:49 | Outpatient (REF) | payer OTHER, SELFPAY ==
[2022-06-09 09:14] LABS: MANUAL DIFF FLAG NO
[2022-06-09 09:45] LABS: Basophils Percent Auto 0.6 % (0-2); Eosinophils Absolute Auto 0.2 X10*3/uL (0.0-0.4); Eosinophils Percent Auto 3.2 % (0-4); Hematocrit 43.2 % (37.0-47.0); Hemoglobin 13.8 g/dl (12.0-16.0); Imm Gran Abs Auto 0.01 X10*3/uL (0.00-0.03); Imm Gran Pct Auto 0.2 % (0.0-0.4); Lymphocytes Absolute Auto 2.9 X10*3/uL (1.2-4.9); Lymphocytes Percent Auto 46.9 % (20-40); Mean Corpuscular HGB Conc 31.9 g/dl (31.0-35.0); Mean Corpuscular Hemoglobin 27.8 pg (27.0-33.0); Mean Corpuscular Volume 87.1 fL (80.0-98.0); Mean Platelet Volume 10.6 fL (9.4-12.3); Monocytes Absolute Auto 0.3 X10*3/uL (0.1-1.2); Monocytes Percent Auto 5.5 % (2-11); Neutrophils Absolute Auto 2.7 x10*3/uL (2.0-8.3); Neutrophils Percent Auto 43.6 % (45-73); Platelet Count 296 X10*3/uL (160-400); Red Blood Count 4.96 X10*6/uL (4.20-5.50); Red Cell Distribution Width 13.4 % (11.0-16.0); White Blood Count 6.2 X10*3/uL (4.8-10.8)
[2022-06-09 09:49] LABS: Estimated Average Glucose 94 mg/dL; Hemoglobin A1c % 4.9 %
[2022-06-09 10:05] LABS: Alanine Aminotransferase 19 U/L (0-31); Albumin Level 4.2 g/dL (3.5-5.0); Alkaline Phosphatase 54 U/L (39-117); Anion Gap 19 (12-20); Aspartate Amino Transferase 26 U/L (5-31); Bilirubin Total 1.3 mg/dL (0.0-1.0); Blood Urea Nitrogen 19 mg/dL (9-16); C Reactive Protein 0.12 mg/dL (< or = 0.50); Calcium 8.9 mg/dL (8.4-10.2); Carbon Dioxide 18 mmol/L (22-29); Chloride 104 mmol/L (96-108); Cholesterol 185 mg/dL; Estimated Glomerular Filt Rate > 60; Glucose Random 75 mg/dL (60-115); HDL Cholesterol 44 mg/dL; Iron 114 mcg/dL (30-160); LDL Cholesterol Calculated 125 mg/dl; Percent Iron Saturation 37 % (15-50); Potassium 4.3 mmol/L (3.3-5.1); Sodium 137 mmol/L (135-145); Total Iron Binding Capacity 308 mcg/dL (228-428); Total Protein 7.2 g/dL (6.5-8.0); Triglycerides 80 mg/dL; Unsaturated Iron Binding 194 ug/dL
[2022-06-09 10:28] LABS: Ferritin 63 ng/mL (10-122); Insulin 4 uU/mL (2-29); Vitamin D 25-OH Total 71.7 ng/mL (>30)
[2022-06-09 11:08] LABS: Folate > 20.0 ng/mL (> or = 4.0); Vitamin B12 925 pg/mL (200-900)
[2022-06-13 12:42] LABS: Calcium (PTHI) 9.8 mg/dL (8.6-10.2); PTHI 28 pg/mL (16-77)
[2022-06-14 00:22] LABS: Zinc 92 mcg/dL (60-130)
[2022-06-14 23:31] LABS: Vitamin A 34 mcg/dL (38-98)
[2022-06-16 05:52] LABS: Vitamin B1 14 nmol/L (8-30)
== END 2022-06-09 08:50 | disposition home or self-care (01) ==
LOC: HO.LAB 08:49
PROVIDERS: PCP Nurse Practitioner Family; Visit Provider Physician Assistant Surgical
DX: Z98.84 Bariatric surgery status (principal)
CPT/HCPCS: 36415; 80053; 80061; 82306; 82607; 82728; 82746; 83036; 83525; 83540; 83970; 84425; 84443; 84590; 84630; 85025; 86140

== ENCOUNTER → 2022-06-28 09:19 | Outpatient (BNVA) | payer OTHER, SELFPAY | PROVIDERS: PCP Nurse Practitioner Family; Visit Provider Dietitian, Registered | DX: Z98.84 Bariatric surgery status (principal) | CPT/HCPCS: 97803 ==

== ENCOUNTER → 2022-08-23 09:18 | Outpatient (BNVA) | payer OTHER, SELFPAY | PROVIDERS: PCP Nurse Practitioner Family; Visit Provider Dietitian, Registered | DX: E66.9 Obesity, unspecified (principal); Z90.3 Acquired absence of stomach [part of] | CPT/HCPCS: 97803 ==

== ENCOUNTER → 2022-11-22 09:05 | Outpatient (BNVA) | payer OTHER, SELFPAY | PROVIDERS: PCP Nurse Practitioner Family; Visit Provider Dietitian, Registered | DX: E66.9 Obesity, unspecified (principal); Z90.3 Acquired absence of stomach [part of]; Z68.24 Body mass index [BMI] 24.0-24.9, adult | CPT/HCPCS: 97803 ==

== ENCOUNTER 2022-12-12 07:01 | Outpatient (REF) | payer OTHER, SELFPAY ==
[2022-12-12 07:17] LABS: MANUAL DIFF FLAG NO
[2022-12-12 08:00] LABS: Basophils Percent Auto 0.6 % (0-2); Eosinophils Absolute Auto 0.3 X10*3/uL (0.0-0.4); Eosinophils Percent Auto 4.4 % (0-4); Hematocrit 42.5 % (37.0-47.0); Hemoglobin 13.9 g/dl (12.0-16.0); Imm Gran Abs Auto 0.02 X10*3/uL (0.00-0.03); Imm Gran Pct Auto 0.3 % (0.0-0.4); Lymphocytes Absolute Auto 2.8 X10*3/uL (1.2-4.9); Lymphocytes Percent Auto 41.3 % (20-40); Mean Corpuscular HGB Conc 32.7 g/dl (31.0-35.0); Mean Corpuscular Hemoglobin 29.4 pg (27.0-33.0); Mean Corpuscular Volume 89.9 fL (80.0-98.0); Mean Platelet Volume 10.5 fL (9.4-12.3); Monocytes Absolute Auto 0.5 X10*3/uL (0.1-1.2); Neutrophils Absolute Auto 3.1 x10*3/uL (2.0-8.3); Neutrophils Percent Auto 46.4 % (45-73); Platelet Count 327 X10*3/uL (160-400); Red Blood Count 4.73 X10*6/uL (4.20-5.50); Red Cell Distribution Width 12.7 % (11.0-16.0); White Blood Count 6.8 X10*3/uL (4.8-10.8)
[2022-12-12 08:08] LABS: Estimated Average Glucose 94 mg/dL; Hemoglobin A1C 112.9747 umol/L; Hemoglobin A1c % 4.9 %
[2022-12-12 15:07] LABS: Alanine Aminotransferase 19 U/L (0-31); Albumin Level 4.9 g/dL (3.5-5.0); Alkaline Phosphatase 53 U/L (39-117); Anion Gap 16 (12-20); Aspartate Amino Transferase 23 U/L (5-31); Bilirubin Total 1.9 mg/dL (0.0-1.0); Blood Urea Nitrogen 22 mg/dL (9-16); Calcium 10.2 mg/dL (8.4-10.2); Carbon Dioxide 25 mmol/L (22-29); Chloride 102 mmol/L (96-108); Cholesterol 186 mg/dL; Estimated Glomerular Filt Rate > 60; Glucose Random 92 mg/dL (60-115); HDL Cholesterol 62 mg/dL; Iron 142 mcg/dL (30-160); LDL Cholesterol Calculated 109 mg/dl; Percent Iron Saturation 37 % (15-50); Potassium 4.9 mmol/L (3.3-5.1); Sodium 138 mmol/L (135-145); Total Iron Binding Capacity 384 mcg/dL (228-428); Total Protein 7.8 g/dL (6.5-8.0); Triglycerides 79 mg/dL; Unsaturated Iron Binding 242 ug/dL
[2022-12-12 15:25] LABS: Ferritin 40 ng/mL (10-122); Folate 17.8 ng/mL (> or = 4.0); Insulin 5 uU/mL (2-29); Vitamin B12 1193 pg/mL (200-900); Vitamin D 25-OH Total 65.9 ng/mL (>30)
[2022-12-14 16:19] LABS: Calcium (PTHI) 10.4 mg/dL (8.6-10.2); PTHI 24 pg/mL (16-77)
[2022-12-16 17:27] LABS: Zinc 65 mcg/dL (60-130)
== END 2022-12-12 07:02 | disposition home or self-care (01) ==
LOC: HO.LAB 07:01
PROVIDERS: PCP Nurse Practitioner Family; Visit Provider Physician Assistant Surgical
DX: K91.2 Postsurgical malabsorption, not elsewhere classified (principal); Z98.84 Bariatric surgery status
CPT/HCPCS: 36415; 80053; 80061; 82306; 82607; 82728; 82746; 83036; 83525; 83540; 83970; 84425; 84443; 84590; 84630; 85025; 86140

== ENCOUNTER 2023-03-23 08:47 | Outpatient (AMB) | payer OTHER, SELFPAY ==
--- NOTE | 2023-03-23 08:30 | A.OFFVIS_ITS ---
Intake Intake Visit Reasons: VIDEO PO LSG 12/16/21 Allergies oxycodone Allergy (Mild, Verified 02/08/23 08:40) Rash HPI Nutrition Presentation Details LSG with Dr. Nabil ARAUZ 12/16/21 Preop weight (12/10) 192# weight at 3MO 154# weight at 1 year post op 137 stays around 135# - weight maintenance Pt is scheduled for skin removal in Nov Diet Assmnt Details 1 premier 2scoop with fairlife skim 8oz and 2 meals. Meals usually protein and vegetable or yogurt or meat snack: quest protein chips, or zone perfect, or meat and cheese snack pack or green beans pt reports her protein intake is 70-80g Taking Celebrate MVI and calcium chewable (jeanna fusion 500mg), has been taking vitamin-A prescribed by our office for deficiency Exercise: stationary bike 1 hour does a low resistance. Diagnosis Nutrition problem #1 overweight/obesity As related to (etiology) #1 excess energy intake and physical inactivity As evidenced by (sign/symptom) #1 high BMI (resolving) Monitoring/Goals Nutrition problem monitoring total energy intake, level of knowledge/skill, total PRO intake, total CHO intake and weight Outcome progress progressing Learning/Education Readiness to learn excellent Stages of change action Most Recent Diabetes Results: Cholesterol 186 mg/dL 12/12/22 HDL Cholesterol 62 mg/dL 12/12/22 Triglycerides 79 mg/dL 12/12/22 Creatinine 0.74 mg/dL (0.5-1.4) 12/12/22 Blood Urea Nitrogen 22 mg/dL (9-16) H 12/12/22 Sodium 138 mmol/L (135-145) 12/12/22 Potassium 4.9 mmol/L (3.3-5.1) 12/12/22 Chloride 102 mmol/L (96-108) 12/12/22 Carbon Dioxide 25 mmol/L (22-29) 12/12/22 Calcium 10.2 mg/dL (8.4-10.2) 12/12/22 AST 23 U/L (5-31) 12/12/22 ALT 19 U/L (0-31) 12/12/22 Total Protein 7.8 g/dL (6.5-8.0) 12/12/22 Albumin 4.9 g/dL (3.5-5.0) 12/12/22 [facility] Medical History Back pain BMI 36.0-36.9,adult BMI 37.0-37.9, adult BMI 39.0-39.9,adult Hypothyroidism IUD (intrauterine device) in place Liver fibrosis Morbid obesity Steatosis, liver Surgical History History of facial surgery History of wisdom tooth extraction, class I edentulism Hx of section Family History Mother Thyroid condition Obesity Anxiety Depression Father No problems noted. Sister No problems noted. Son No problems noted. Social History Are you a primary wild animal caretaker to a significant other at home: Yes (4 yr old son) Do you presently have visiting nurse or other home services: No Alcohol intake: current Alcohol intake frequency: a few times a month Patient Tobacco Use Status: Former Tobacco user Quit Date: 2016 Tobacco use type: Cigarette service: No Current occupational status: employed Assessment & Plan Assessment & Plan (1) History of sleeve gastrectomy: Code(s): Z90.3 - Acquired absence of stomach [part of] Patient Instructions: Patient has done exceptionally well and is fairly self-sufficient when it comes to adjusting her nutrition plan. Recommend 1-2 weeks before skin removal to increase protein and calorie intake, protein goal 100-120 g per day. Should continue this postop is well until completely healed . Patient encouraged to communicate as needed with office Telehealth Telehealth Location of provider rendering services: practice address Location of patient: address on file Patient Identification confirmed using: Name, : Yes Telehealth method: video Patient verbally consented to treatment: Yes Patient verbally consented to billing insurance company: Yes Patient informed of any privacy concerns related to visit: Yes Minutes spent on Phone/Video with Pt.: 15 Coding Level of Care Code Nutr Indiv Subseq ([id number]) Diagnoses History of sleeve gastrectomy Z90.3 Time Spent (min) 15
== END 2023-03-23 08:48 | disposition home or self-care (01) ==
LOC: HO.HBS 08:47
PROVIDERS: PCP Nurse Practitioner Family; Visit Provider Dietitian, Registered
DX: Z90.3 Acquired absence of stomach [part of] (principal)

== ENCOUNTER → 2023-03-23 08:47 | Outpatient (BNVA) | payer OTHER, SELFPAY | PROVIDERS: PCP Nurse Practitioner Family; Visit Provider Dietitian, Registered | DX: E66.9 Obesity, unspecified (principal); Z71.3 Dietary counseling and surveillance | CPT/HCPCS: 97803 ==

== ENCOUNTER 2023-06-01 07:23 | Outpatient (REF) | payer OTHER, SELFPAY ==
[2023-06-05 12:24] LABS: Vitamin B1 19 nmol/L (8-30)
[2023-06-07 04:19] LABS: Vitamin A 49 mcg/dL (38-98)
== END 2023-06-01 07:24 | disposition home or self-care (01) ==
LOC: HO.LAB 07:23
PROVIDERS: PCP Nurse Practitioner Family; Visit Provider Physician Assistant Surgical
DX: Z98.84 Bariatric surgery status (principal)
CPT/HCPCS: 36415; 84425; 84590

== ENCOUNTER 2023-06-05 07:59 | Outpatient (AMB) | payer OTHER, SELFPAY ==
--- NOTE | 2023-06-05 09:05 | MHC.OFFVISWM ---
Intake VS Expanded 06/05/23 09:07 Height 5 ft 2 in Weight 145 lb BMI 26.5 Intake Visit Reasons: TV Pre Op Panniculectomy 06/15/23 *3RD R/S* Allergies oxycodone Allergy (Mild, Verified 06/05/23 09:06) Rash transparent dressing [Tegaderm] Allergy (Mild, Verified 06/05/23 09:06) Rash Medication List - Last Reconciled 06/05/23 by Eloi Ferrer MD calcium carbonate (Calcium) 600 mg PO DAILY clotrimazole 1% 1 appl topical BID levothyroxine 25 mcg PO DAILY multivitamin 1 tab PO DAILY HPI TV Pre Op Panniculectomy 06/15/23 *3RD R/S* HPI Details Start time: 9.13am, End time: 9.43am ?I spent 25 minutes speaking with the patient on the phone plus an additional 5 minutes reviewing and updating records for a total of 30 minutes HPI Comments History of Present Illness Details Overall weight loss: Is doing a Pure powdered protein shake (1 scoop in 8oz Fairlife milk), a Zone Perfect protein bar or a lunch, dinner and maybe another protein bar or another premade Premier shake Exercise: stationary bike for 6 days per week for 700 calories [facility] Medical History (Updated 06/05/23 @ 09:21 by Elio Ferrer MD) Liver fibrosis Steatosis, liver BMI 36.0-36.9,adult IUD (intrauterine device) in place BMI 37.0-37.9, adult BMI 39.0-39.9,adult Hypothyroidism Back pain Morbid obesity Surgical History (Updated 06/02/23 @ 12:52 by Tammy Malloy RN) History of sleeve gastrectomy History of facial surgery Hx of section History of wisdom tooth extraction, class I edentulism Family History Mother Thyroid condition Obesity Anxiety Depression Father No problems noted. Sister No problems noted. Son No problems noted. Social History Are you a primary rental boats caretaker to a significant other at home: No Do you presently have visiting nurse or other home services: No Alcohol intake: current Alcohol intake frequency: holidays/special occasions only Patient Tobacco Use Status: Former Tobacco user Quit Date: 2016 Tobacco use type: Cigarette Years Smoked: <5 service: No Current occupational status: employed Physical Exam Vital Signs: BMI result Body Mass Index 26.5 Assessment & Plan Assessment & Plan (1) Postgastrectomy malabsorption: Code(s): K91.2 - Postsurgical malabsorption, not elsewhere classified; Z90.3 - Acquired absence of stomach [part of] Plan: 1. Plan for panniculectomy 2. Continue all vitamins 3. Avoid aspirin, Motrin, aleve, Naproxyn, Advil, etc 4. Please mushroom picker the two prescriptions I sent to your pharmacy. One is an antibiotic and the other is a stool softener and they are both for after surgery. Not now 5. Please do the preoperative blood work any day between Monday06/06/23 and Monday06/09/23 6. Change nutritional plan to 2 Pure protein shakes (QUARTER scoop EACH in 8oz almond milk) at 9-11 and 12-2, one Zone Perfect protein bar at 3-5pm, dinner at 6pm (7 forkfuls of protein and 7 forkfuls of salad or vegetables) and one more Zone Perfect protein bar at 8pm-10pm. This nutritional plan will give you the best nutritional support to heal your incisions after your surgery. 7. Risks and complications were discussed the possibility of bleeding that may require transfusion, loss of the umbilicus, wound dehiscence or infection, dog ears , flap asymmetry. We also discussed the need for a drain postoperatively that may remain for more than 3-4 weeks. We also discussed the importance of strict avoidance of weight lifting. (2) Excess skin: Code(s): L98.7 - Excessive and redundant skin and subcutaneous tissue Orders: Orders TSH reflex Free T4 Today E03.9 - Hypothyroidism, unspecified, K91.2 - Postsurgical malabsorption, not elsewhere classified, Z90.3 - Acquired absence of stomach [part of], Z98.84 - Bariatric surgery status Prothrombin Time INR Today E03.9 - Hypothyroidism, unspecified, K91.2 - Postsurgical malabsorption, not elsewhere classified, Z90.3 - Acquired absence of stomach [part of], Z98.84 - Bariatric surgery status Partial Thromboplastin Time Today E03.9 - Hypothyroidism, unspecified, K91.2 - Postsurgical malabsorption, not elsewhere classified, Z90.3 - Acquired absence of stomach [part of], Z98.84 - Bariatric surgery status Comprehensive Met. Panel Today E03.9 - Hypothyroidism, unspecified, K91.2 - Postsurgical malabsorption, not elsewhere classified, Z90.3 - Acquired absence of stomach [part of], Z98.84 - Bariatric surgery status Hemoglobin A1c Today E03.9 - Hypothyroidism, unspecified, K91.2 - Postsurgical malabsorption, not elsewhere classified, Z90.3 - Acquired absence of stomach [part of], Z98.84 - Bariatric surgery status C Reactive Protein Today E03.9 - Hypothyroidism, unspecified, K91.2 - Postsurgical malabsorption, not elsewhere classified, Z90.3 - Acquired absence of stomach [part of], Z98.84 - Bariatric surgery status Insulin Today E03.9 - Hypothyroidism, unspecified, K91.2 - Postsurgical malabsorption, not elsewhere classified, Z90.3 - Acquired absence of stomach [part of], Z98.84 - Bariatric surgery status Type and Screen Today E03.9 - Hypothyroidism, unspecified, K91.2 - Postsurgical malabsorption, not elsewhere classified, Z90.3 - Acquired absence of stomach [part of], Z98.84 - Bariatric surgery status Lipid Panel Today E03.9 - Hypothyroidism, unspecified, K91.2 - Postsurgical malabsorption, not elsewhere classified, Z90.3 - Acquired absence of stomach [part of], Z98.84 - Bariatric surgery status Complete Blood Count Auto Diff Today E03.9 - Hypothyroidism, unspecified, K91.2 - Postsurgical malabsorption, not elsewhere classified, Z90.3 - Acquired absence of stomach [part of], Z98.84 - Bariatric surgery status Vitamin B12 Today E03.9 - Hypothyroidism, unspecified, K91.2 - Postsurgical malabsorption, not elsewhere classified, Z90.3 - Acquired absence of stomach [part of], Z98.84 - Bariatric surgery status Vitamin D 25-OH Total Today E03.9 - Hypothyroidism, unspecified, K91.2 - Postsurgical malabsorption, not elsewhere classified, Z90.3 - Acquired absence of stomach [part of], Z98.84 - Bariatric surgery status Medications: New cephalexin 500 mg PO Q12H 60 caps 2RF L03.90 - Cellulitis, unspecified docusate sodium (Colace) 100 mg PO DAILY 30 caps 2RF K59.00 - Constipation, unspecified Telehealth Telehealth Location of provider rendering services: practice address Location of patient: address on file Patient Identification confirmed using: Name, : Yes Telehealth method: voice only Patient verbally consented to treatment: Yes Patient verbally consented to billing insurance company: Yes Patient informed of any privacy concerns related to visit: Yes Minutes spent on Phone/Video with Pt.: 30 Coding Level of Care Code Tele Est Pt Level 4 (33331) Diagnoses Postgastrectomy malabsorption K91.2; Z90.3 Excess skin L98.7 Time Spent (min) 30
[2023-06-05 09:07] VITALS: BMI 26.5
== END 2023-06-05 09:44 | disposition home or self-care (01) ==
LOC: HO.HBS 07:59
PROVIDERS: PCP Nurse Practitioner Family; Visit Provider Surgery
DX: K91.2 Postsurgical malabsorption, not elsewhere classified (principal); Z90.3 Acquired absence of stomach [part of]; L98.7 Excessive and redundant skin and subcutaneous tissue
CPT/HCPCS: 99214

== ENCOUNTER 2023-06-15 06:31 | Day surgery (SDC) | payer OTHER, SELFPAY ==
[2023-06-02 12:53] VITALS: BMI 26.5
[2023-06-05 11:06] LABS: MANUAL DIFF FLAG NO
[2023-06-05 11:25] LABS: Basophils Absolute Auto 0.1 X10*3/uL (0.0-0.2); Eosinophils Absolute Auto 0.2 X10*3/uL (0.0-0.4); Eosinophils Percent Auto 3.5 % (0-4); Hematocrit 43.9 % (37.0-47.0); Hemoglobin 14.7 g/dl (12.0-16.0); Imm Gran Abs Auto 0.01 X10*3/uL (0.00-0.03); Imm Gran Pct Auto 0.2 % (0.0-0.4); Lymphocytes Absolute Auto 1.9 X10*3/uL (1.2-4.9); Lymphocytes Percent Auto 36.8 % (20-40); Mean Corpuscular HGB Conc 33.5 g/dl (31.0-35.0); Mean Corpuscular Hemoglobin 29.2 pg (27.0-33.0); Mean Corpuscular Volume 87.1 fL (80.0-98.0); Mean Platelet Volume 9.8 fL (9.4-12.3); Monocytes Absolute Auto 0.3 X10*3/uL (0.1-1.2); Monocytes Percent Auto 6.4 % (2-11); Neutrophils Absolute Auto 2.7 x10*3/uL (2.0-8.3); Neutrophils Percent Auto 52.1 % (45-73); Platelet Count 322 X10*3/uL (160-400); Red Blood Count 5.04 X10*6/uL (4.20-5.50); Red Cell Distribution Width 12.3 % (11.0-16.0); White Blood Count 5.1 X10*3/uL (4.8-10.8)
[2023-06-05 11:31] LABS: INTERNATIONAL NORM RATIO 1.1 (0.9-1.1); Prothrombin Time 12.8 SEC (11.1-13.3)
[2023-06-05 11:34] LABS: Estimated Average Glucose 91 mg/dL; Hemoglobin A1c % 4.8 % (<6.0); Partial Thromboplastin Time 32.8 SEC (26.0-36.4)
[2023-06-05 12:06] LABS: Alanine Aminotransferase 25 U/L (0-31); Albumin Level 4.8 g/dL (3.5-5.0); Alkaline Phosphatase 56 U/L (39-117); Anion Gap 15 (12-20); Aspartate Amino Transferase 24 U/L (5-31); Bilirubin Total 1.3 mg/dL (0.0-1.0); Blood Urea Nitrogen 15 mg/dL (9-16); C Reactive Protein 0.19 mg/dL (< or = 0.50); Calcium 9.8 mg/dL (8.4-10.2); Carbon Dioxide 25 mmol/L (22-29); Chloride 102 mmol/L (96-108); Cholesterol 185 mg/dL (<200); Creatinine Clr Calc Pharmacy 92.7; Estimated Glomerular Filt Rate > 60; Glucose Random 80 mg/dL (60-115); HDL Cholesterol 56 mg/dL (>40); LDL Cholesterol Calculated 114 mg/dL (<100); Potassium 4.1 mmol/L (3.3-5.1); Sodium 138 mmol/L (135-145); Total Protein 8.2 g/dL (6.5-8.0); Triglycerides 79 mg/dL (<150)
[2023-06-05 12:24] LABS: Insulin 4 uU/mL (2-29); TSH reflex Free T4 1.61 uIU/mL (0.32-4.0); Vitamin D 25-OH Total 69.8 ng/mL (>30)
[2023-06-05 12:29] LABS: Vitamin B12 1255 pg/mL (200-900)
--- NOTE | 2023-06-09 23:06 | P.HPSUR_ITS ---
Pre-Procedural Eval Section A Date of Service: 06/09/23 The patient is an INPATIENT: No The History & Physical has been completed within 30 days and I have reviewed it.: Yes Section B Chief Complaint: Excessive and redundant skin and subcutaneous tiss Relevant Family History (Specify if Yes): No Relevant Social History: None Present Medications: None History of Previous Operations: Relevant previous surgery/procedure and date(s) (Lap sleeve gastrectomy) Allergies: Allergies Allergy/AdvReac Type Severity Reaction Status Date / Time oxycodone Allergy Mild Rash Verified 06/05/23 09:06 transparent dressing Allergy Mild Rash Verified 06/05/23 09:06 [Tegaderm] Review of Systems Sugical H&P ROS: Negative: Constitution, Cardiovascular, Respiratory, Neurological, Psychiatric, Hem-Onc, Allergic/Immunologic, Gastrointestinal, Ge nitourinary, Musculoskeletal, Integumentary, Endocrine and Eyes/Ears/Nose/Throat Exam Surgical H&P Exam: Normal: HEENT, Normal: Heart, Normal: Lungs, Normal: Extremities, Normal: Abdomen, Normal: Skin and Normal: Neurological Plan Diagnosis/Plan: Unchanged I have reviewed the history and physical and performed a pertinent physical examination on my patient. No changes have occurred unless specified. Time Spent With Patient Time: Total time managing care of this patient today ____ minutes.
--- NOTE | 2023-06-14 10:03 | P.CONAN_ITS ---
Documented by User: Cee Baker NP 06/14/23 10:06 HPI - Anesthesia Eval Consult details Narrative: 28yo F for Panniculectomy s/p gastric sleeve 12/2021 with GA-ETT 7 PMFSH Active Problems Active Problems: All Active Problems (Updated 06/05/23 @ 09:21 by Elio Ferrer MD) Postgastrectomy malabsorption (Acute) Constipation (Acute) Excess skin (Acute) S/P laparoscopic sleeve gastrectomy (Acute) BMI 35.0-35.9,adult (Acute) Obesity (Acute) Adjustment disorder with mixed anxiety and depressed mood (Acute) Vitamin D deficiency (Acute) Liver fibrosis (Acute) Steatosis, liver (Acute) Hypothyroidism (Acute) Back pain (Acute) Past Medical History Medical History Liver fibrosis Steatosis, liver BMI 36.0-36.9,adult IUD (intrauterine device) in place BMI 37.0-37.9, adult BMI 39.0-39.9,adult Hypothyroidism Back pain Morbid obesity Family History Family History Mother Thyroid condition Obesity Anxiety Depression Father No problems noted. Sister No problems noted. Son No problems noted. Family history of problems with anesthesia: No Surgical History Surgical History History of sleeve gastrectomy History of facial surgery Hx of section History of wisdom tooth extraction, class I edentulism History of Problems with Anesthesia: No Social History Social History Are you a primary spiritual care coordinator to a significant other at home: No Do you presently have visiting nurse or other home services: No Alcohol intake: current Alcohol intake frequency: holidays/special occasions only Patient Tobacco Use Status: Former Tobacco user Quit Date: 2016 Tobacco use type: Cigarette Years Smoked: <5 Use of substances other than those prescribed or required for medical reasons: No Have you been hit, kicked, punched, or otherwise hurt by someone within the past year? If so, by whom?: No Are you DNR?: No Advance Directives Information Provided: Yes (as above noted) Advance Directives on File: No Recently lost weight without trying: No Eating poorly because of decreased appetite: No Nutrition Risks: No Nutritional Risk Patient : No FDLMP: 05/22/23 : No Poor oral hygiene: No service: No Current occupational status: employed Meds Allergies Allergy/AdvReac Type Severity Reaction Status Date / Time oxycodone Allergy Mild Rash Verified 06/15/23 07:05 transparent dressing Allergy Mild Rash Verified 06/15/23 07:05 [Tegaderm] Home Medications Medication Instructions Recorded Confirmed Last Taken Type calcium carbonate 600 mg calcium 600 mg PO DAILY 06/09/22 06/05/23 Unknown History (1,500 mg) tablet (Calcium) multivitamin 1 tab PO DAILY 06/09/22 06/05/23 Unknown History Exam Exam Date and Time: June 14, 2023 1003 Height,Weight and Vital Signs: Height 5 ft 2 in Weight 65.771 kg Pertinent Lab Results Pertinent Lab Results: Laboratory Tests 06/05/23 06/05/23 10:55 11:03 WBC 5.1 RBC 5.04 Hgb 14.7 Hct 43.9 MCV 87.1 MCH 29.2 MCHC 33.5 RDW 12.3 Plt Count 322 MPV 9.8 Immature Gran % (Auto) 0.2 Neut % (Auto) 52.1 Lymph % (Auto) 36.8 [place] % (Auto) 6.4 Eos % (Auto) 3.5 Baso % (Auto) 1.0 Lymph # (Auto) 1.9 [place] # (Auto) 0.3 Eos # (Auto) 0.2 Baso # (Auto) 0.1 Abs Immat Gran (auto) 0.01 Absolute Neuts (auto) 2.7 Absolute Nucleated RBC 0.000 Nucleated RBC % (auto) 0.0 PT 12.8 INR 1.1 APTT 32.8 Sodium 138 Potassium 4.1 Chloride 102 Carbon Dioxide 25 Anion Gap 15 BUN 15 Creatinine 0.79 Estim Creat Clear Calc 92.7 Estimated GFR > 60 Random Glucose 80 Estimat Average Glucose 91 Hemoglobin A1c % 4.8 Insulin Level 4 Calcium 9.8 Total Bilirubin 1.3 H AST 24 ALT 25 Alkaline Phosphatase 56 C-Reactive Protein 0.19 Total Protein 8.2 H Albumin 4.8 Triglycerides 79 Cholesterol 185 LDL Cholesterol, Calc 114 H HDL Cholesterol 56 Vitamin B12 1255 H 25-OH Vitamin D Total 69.8 TSH 1.61 Blood Type A Positive Antibody Screen NEGATIVE Assessment and Plan Assessment Anesthesia Assessment: Chart Reviewed Final Anesthetic Review Family History of Problems with Anesthesia: No History of Problems with Anesthesia: No Documented by User: Madyson Kirkland MD 06/15/23 08:04 [facility] Active Problems Active Problems: All Active Problems (Updated 06/15/23 @ 07:33 by Madyson Kirkland MD) Postgastrectomy malabsorption (Acute) Constipation (Acute) Excess skin (Acute) S/P laparoscopic sleeve gastrectomy (Acute) BMI 35.0-35.9,adult (Acute) Obesity (Acute) Adjustment disorder with mixed anxiety and depressed mood (Acute) Vitamin D deficiency (Acute) Liver fibrosis (Acute) Steatosis, liver (Acute) Hypothyroidism (Acute) Back pain (Acute) Denies SUMMER Past Medical History Medical History Liver fibrosis Steatosis, liver BMI 36.0-36.9,adult IUD (intrauterine device) in place BMI 37.0-37.9, adult BMI 39.0-39.9,adult Hypothyroidism Back pain Morbid obesity Family History Family History Mother Thyroid condition Obesity Anxiety Depression Father No problems noted. Sister No problems noted. Son No problems noted. Surgical History Surgical History History of sleeve gastrectomy History of facial surgery Hx of section History of wisdom tooth extraction, class I edentulism Social History Social History Are you a primary spiritual care coordinator to a significant other at home: No Do you presently have visiting nurse or other home services: No Alcohol intake: current Alcohol intake frequency: holidays/special occasions only Patient Tobacco Use Status: Former Tobacco user Quit Date: 2016 Tobacco use type: Cigarette Years Smoked: <5 Use of substances other than those prescribed or required for medical reasons: No Have you been hit, kicked, punched, or otherwise hurt by someone within the past year? If so, by whom?: No Are you DNR?: No Advance Directives Information Provided: Yes (as above noted) Advance Directives on File: No Recently lost weight without trying: No Eating poorly because of decreased appetite: No Nutrition Risks: No Nutritional Risk Patient : No FDLMP: 05/22/23 : No Poor oral hygiene: No service: No Current occupational status: employed Meds Allergies Allergy/AdvReac Type Severity Reaction Status Date / Time oxycodone Allergy Mild Rash Verified 06/15/23 07:05 transparent dressing Allergy Mild Rash Verified 06/15/23 07:05 [Tegaderm] Home Medications Medication Instructions Recorded Confirmed Last Taken Type calcium carbonate 600 mg calcium 600 mg PO DAILY 06/09/22 06/05/23 Unknown History (1,500 mg) tablet (Calcium) multivitamin 1 tab PO DAILY 06/09/22 06/05/23 Unknown History Exam Height,Weight and Vital Signs: Height 5 ft 2 in Weight 65.771 kg Vital Signs Temp Pulse Resp BP Pulse Ox O2 Del Method 06/15/23 07:37 97.2 F 90 18 103/72 98 Room Air Pertinent Lab Results Pertinent Lab Results: Laboratory Tests 06/05/23 06/05/23 10:55 11:03 WBC 5.1 RBC 5.04 Hgb 14.7 Hct 43.9 MCV 87.1 MCH 29.2 MCHC 33.5 RDW 12.3 Plt Count 322 MPV 9.8 Immature Gran % (Auto) 0.2 Neut % (Auto) 52.1 Lymph % (Auto) 36.8 [place] % (Auto) 6.4 Eos % (Auto) 3.5 Baso % (Auto) 1.0 Lymph # (Auto) 1.9 [place] # (Auto) 0.3 Eos # (Auto) 0.2 Baso # (Auto) 0.1 Abs Immat Gran (auto) 0.01 Absolute Neuts (auto) 2.7 Absolute Nucleated RBC 0.000 Nucleated RBC % (auto) 0.0 PT 12.8 INR 1.1 APTT 32.8 Sodium 138 Potassium 4.1 Chloride 102 Carbon Dioxide 25 Anion Gap 15 BUN 15 Creatinine 0.79 Estim Creat Clear Calc 92.7 Estimated GFR > 60 Random Glucose 80 Estimat Average Glucose 91 Hemoglobin A1c % 4.8 Insulin Level 4 Calcium 9.8 Total Bilirubin 1.3 H AST 24 ALT 25 Alkaline Phosphatase 56 C-Reactive Protein 0.19 Total Protein 8.2 H Albumin 4.8 Triglycerides 79 Cholesterol 185 LDL Cholesterol, Calc 114 H HDL Cholesterol 56 Vitamin B12 1255 H 25-OH Vitamin D Total 69.8 TSH 1.61 Blood Type A Positive Antibody Screen NEGATIVE Laboratory Results - last 24 hr 06/15/23 06:40 Urine Test NEGATIVE Airway Mallampati Class: II TM Dist: >3cm Neck ROM: Full Loose/Missing/Broken Teeth: No (Denies broken, loose, missing teeth) Heart: RRR Lungs: CTAB Assessment and Plan Assessment Anesthesia Assessment: Anesthesia Plan Discussed Final Anesthetic Review NPO: Yes ASA Class: II Final Preanesthetic Review: No Changes in Pt Med Stat, Meds/Allgs Chart Reviewed, Consent Obtained/Reviewed and Anes Risks/Benef Reviewed Patient Risk: Low Procedure Risk: Low Assessment/Block/Sedation in SS: Assess/Block/Sedation-SS Anesthetic Plan Anesthetic Plan: GA Disposition: Standard PACU
[2023-06-15] VITALS (15 sets, daily range): BP systolic 95–111; BP diastolic 49–72; PULSE 86–121; RESP 14–18; TEMP 36.2–36.8; O2SAT 98–100
[2023-06-15 07:18] LABS: UPreg QC Valid YES; Urine Pregnancy NEGATIVE (NEGATIVE)
[2023-06-15] MEDS: Lactated Ringers 1,000 ML 100 ML IVCONT (07:34)
[2023-06-15] MEDS: Lactated Ringers 1,000 ML 80 ML IVCONT (07:34)
--- NOTE | 2023-06-15 08:33 | P.BOP_ITS ---
Brief Operative Note Date of Service: 06/15/23 Procedure: PROCEDURE: Panniculectomy with umbilical transposition and bilateral subcutaneous fat flaps INDICATION: This a 28 year old female who underwent laparoscopic sleeve gastrectomy on 12/16/2021. She had an excellent result achieving a BMI of 26.6 kg/m2 with a total weight loss of 81.4lbs, or 35.9% of her TBWL. As a result, she has developed panniculitis which has not resolved despite continuous use of clotrimazole ointment as well as skin irritation. On exam she has extreme skin laxity due to massive weight loss, with the abdominal pannus completely hanging 4cm below the pubis. Panniculectomy was recommended. We discussed the two options for the panniculectomy of using a combined vertical and horizontal incisions or just a horizontal (bikini) incision. It was my recommendation to do only horizontal incision based on her body habitus and skin laxity. The patient agreed with this. Risks and complications were discussed with the patient including bleeding, infection, umbilical loss, flap necrosis, asymmetry, dehiscence, seroma, VTE. The patient understood the risks and was in agreement to proceed with surgery. PROCEDURE: The incisions were appropriately marked at the preop area with the patient standing and laying down. After induction of general anesthesia a Troy catheter and pneumatic compression devices were placed. The patient was prepped and draped in the usual sterile manner and the incisions were marked again and confirmed. The skin was infiltrated with lidocaine and epinephrine. The #10 blade scalpel was used for the large incisions and the #15 blade scalpel for the umbilicus. Cautery was used to divide the subcutaneous tissues until the fascia was identified. Then I used the cautery to separate the pannus from the fascia. The inferior incision was made initially and I mobilized the flap for a several centimeters cephalad to the umbilicus. The umbilicus was incised circumferentially and detached from the surrounding tissues all the way to the fascia while its stalk was preserved. With the patient in reflex position I confirmed that the skin flaps were appropriate and would allow for the tissues to come together with reasonable tension. At that point a horizontal incision was made 4 cm above the umbilicus. #10 blade was used for the skin, cautery for the dermis and the remaining tissues. A subcutaneous fat flap was raised from the upper skin flap in order to fill the space under the skin and support the closure of the two flaps. In addition the inferior flap was mobilized caudally for a few centimeters to create a space for the subcutaneous fat flap as well as relieve tension from the closure. A circumferential incision was made at the area where the umbilicus would be re-implanted. The umbilicus was appropriately oriented and was delivered through the defect and was secured in place with a [place]. No bleeding was noted anywhere. One HAKAN drain was placed from the left corner of the horizontal incision across the wound and was secured in place with a silk suture. A total of 7ml of Zynrelef was applied on top of the fascia and under the subcutaneous fat flaps. The subcutaneous fat flap was secured under the inferior flap with several interrupted 3.0 Monocryl sutures. The two flaps were brought together and were attached at the midline of the horizontal incision with a #3.0 Monocryl suture. At that point the umbilicus was properly oriented and was re-approximated to the skin with 8 interrupted 3.0 Monocryl sutures. In a similar fashion the skin flaps were re-approximated with multiple 3.0 Monocryl sutures. The skin was closed in all incisions and umbilicus with 4.0 Monocryl sutures. Steri-strips, xeroform gauzes and gauzes were used to cover the incisions. An abdominal binder was also placed. The was awaken and was transferred to the recover room in a stable condition. I was present and performed the entire procedure. Terese was the rn first assistant. Niels Ferrer MD, PhD, FACS Surgeon: Elio Ferrer MD Surgeon: Elio Ferrer MD Anesthesia: other (7ml Zynrelef) Was an Cellular Equipment Repairer used for this Procedure?: No Cellular Equipment Repairer: Luca Gudino Estimated blood loss (mL): 10 IV fluids (mL): 2,500 Urine output (mL): 400 Pathology: other (abdominal pannus) Condition: stable Disposition: PACU
[2023-06-15] MEDS: ondansetron HCL 4 MG/2 ML VIAL IVPUSH (12:40)
== END 2023-06-15 15:45 | disposition home or self-care (01) ==
PROVIDERS: Nurse Practitioner; PCP Nurse Practitioner Family; Visit Provider Surgery
PROC: 0JB80ZZ Excision of Abdomen Subcutaneous Tissue and Fascia, Open Approach (ICD-10-PCS; CPT 15830; principal; 2023-06-15 08:40)
DX: L98.7 Excessive and redundant skin and subcutaneous tissue (principal); M79.3 Panniculitis, unspecified; E65 Localized adiposity; K91.2 Postsurgical malabsorption, not elsewhere classified; Z90.3 Acquired absence of stomach [part of]; Z98.84 Bariatric surgery status; L03.90 Cellulitis, unspecified; E66.01 Morbid (severe) obesity due to excess calories; Z68.35 Body mass index [BMI] 35.0-35.9, adult; K74.00 Hepatic fibrosis, unspecified; K76.0 Fatty (change of) liver, not elsewhere classified; K59.00 Constipation, unspecified; E03.9 Hypothyroidism, unspecified; Z79.899 Other long term (current) drug therapy; Z88.5 Allergy status to narcotic agent; Z91.040 Latex allergy status; Z87.891 Personal history of nicotine dependence
CPT/HCPCS: 15830; 15847; 36415; 80053; 80061; 81025; 82306; 82607; 83036; 83525; 84443; 85025; 85610; 85730; 86140; 86850; 86900; 86901; 88304; C9088; J0131; J0690; J1100; J1170; J2250; J2371; J2405; J2550; J3010; J3370

== ENCOUNTER → 2023-06-15 06:31 | Outpatient (BNV) | payer OTHER, SELFPAY | PROVIDERS: PCP Nurse Practitioner Family; Visit Provider Surgery | DX: L98.7 Excessive and redundant skin and subcutaneous tissue (principal) | CPT/HCPCS: 15830 ==

== ENCOUNTER 2023-06-21 09:19 | Outpatient (AMB) | payer OTHER, SELFPAY ==
--- NOTE | 2023-06-21 09:21 | MHC.OFFVISWM ---
Intake VS Expanded 06/21/23 09:45 BP 106/70 Blood Pressure Location Rt brachial Blood Pressure Position Sitting Pulse 94 Pulse Source Pulse Oximeter Temp 97.3 F Temperature Source Temporal Artery Scan Pulse Oximetry 95 Oxygen Delivery Method Room Air Height 5 ft 2 in Weight 141 lb 9.6 oz BMI 25.9 Body Fat % 37.1 Body Fat Mass 52.4 Fat Free Mass 89.0 Visceral Fat Rating 5.0 Body Water % 45.2 Body Water Mass 64.0 Muscle Mass/Score 84.4 Basal Metabolic Rate/Score 1,271 Intake Visit Reasons: (OV) s/p Panniculectomy 06/15/23 Allergies oxycodone Allergy (Mild, Verified 06/21/23 09:25) Rash transparent dressing [Tegaderm] Allergy (Mild, Verified 06/21/23:) Rash HPI HPI Comments History of Present Illness Details The patient is a pleasant 28-year-old female who returns to the office today in follow-up for her recent panniculectomy performed on 06/15/2023. She continues her antibiotics and meal plan per Dr. Ferrer. Reports drainage approximately 30-40 mL per day. She denies any significant pain and is no longer requiring Tylenol. She feels as though she no longer needs the visiting nurses as she and her can do the dressings. [facility] Medical History Liver fibrosis Steatosis, liver BMI 36.0-36.9,adult IUD (intrauterine device) in place BMI 37.0-37.9, adult BMI 39.0-39.9,adult Hypothyroidism Back pain Morbid obesity Surgical History History of sleeve gastrectomy History of facial surgery Hx of section History of wisdom tooth extraction, class I edentulism Family History Mother Thyroid condition Obesity Anxiety Depression Father No problems noted. Sister No problems noted. Son No problems noted. Social History Are you a primary careers adviser to a significant other at home: No Do you presently have visiting nurse or other home services: No Alcohol intake: current Alcohol intake frequency: holidays/special occasions only Patient Tobacco Use Status: Former Tobacco user Quit Date: 2016 Tobacco use type: Cigarette Years Smoked: <5 service: No Current occupational status: employed Physical Exam GI Inspection: Yes incision (Clean, dry, intact. No evidence of infection. Umbilicus viable) Assessment & Plan Assessment & Plan (1) S/P panniculectomy: Comment: 06/15/23 Code(s): Z98.890 - Other specified postprocedural states Plan: Overall, the patient is doing very well. Incision is healing nicely. Continue current meal plan and antibiotics. Return to the office in 1 week. Coding Level of Care Code Global (14858) Diagnoses S/P panniculectomy Z98.890
[2023-06-21 09:45] VITALS: BP 106/70; PULSE 94; TEMP 36.3; O2SAT 95; BMI 25.9
== END 2023-06-21 09:55 | disposition home or self-care (01) ==
PROVIDERS: PCP Nurse Practitioner Family; Visit Provider Physician Assistant Surgical
DX: Z98.890 Other specified postprocedural states (principal)
CPT/HCPCS: 99024

== ENCOUNTER 2023-06-28 15:11 | Outpatient (AMB) | payer OTHER, SELFPAY ==
--- NOTE | 2023-06-28 15:13 | A.OFFVIS_ITS ---
Intake VS Expanded 06/28/23 15:21 BP 112/62 Blood Pressure Location Rt brachial Blood Pressure Position Sitting Pulse 97 Pulse Source Pulse Oximeter Temp 97.2 F Temperature Source Temporal Artery Scan Pulse Oximetry 97 Oxygen Delivery Method Room Air Intake Visit Reasons: (OV) s/p Panniculectomy 06/15/23 Allergies oxycodone Allergy (Mild, Verified 06/28/23 15:22) Rash transparent dressing [Tegaderm] Allergy (Mild, Verified 06/28/23 15:22) Rash HPI HPI Comments History of Present Illness Details The patient is a very pleasant 28-year-old female who returns to the office today in follow-up from her panniculectomy performed on 06/15/2023. She states that she continues her antibiotics and is following the meal plan as outlined by Dr. Sargent. She did have a noted rash to her ankles and arms for which she took Benadryl with resolution. She also notes a slight rash to the far left abdomen consistent with irritation from the tape. She has noted approximately 15-20 mL of serosanguineous drainage from the bulb daily. No significant complaints of pain, abdominal fullness. She is moving her bowels without difficulty. [facility] Medical History Liver fibrosis Steatosis, liver BMI 36.0-36.9,adult IUD (intrauterine device) in place BMI 37.0-37.9, adult BMI 39.0-39.9,adult Hypothyroidism Back pain Morbid obesity Surgical History History of sleeve gastrectomy History of facial surgery Hx of section History of wisdom tooth extraction, class I edentulism Family History Mother Thyroid condition Obesity Anxiety Depression Father No problems noted. Sister No problems noted. Son No problems noted. Are you a primary wild animal caretaker to a significant other at home: No Do you presently have visiting nurse or other home services: No Alcohol intake: current Alcohol intake frequency: holidays/special occasions only Patient Tobacco Use Status: Former Tobacco user Quit Date: 2016 Tobacco use type: Cigarette Years Smoked: <5 service: No Current occupational status: employed Physical Exam Vital Signs: Last Vital Signs Temp 97.2 F 06/28/23 15:21 Pulse 97 06/28/23 15:21 BP 112/62 06/28/23 15:21 Pulse Ox 97 06/28/23 15:21 Oxygen Delivery Method Room Air 06/28/23 15:21 Skin Other: Transverse incision is clean, dry, intact. There is mild raised erythema to the far left abdomen, not on the incision line or at the drain output site. Umbilicus is viable. Assessment & Plan Assessment & Plan (1) S/P panniculectomy: Comment: 06/15/23 Code(s): Z98.890 - Other specified postprocedural states Plan: Continue current meal plan and antibiotics. Continue to monitor drain output. Return to the office in 1 week. Additionally, use the least amount of tape to secure her bandages. Coding Level of Care Code Global (69942) Diagnoses S/P panniculectomy Z98.890
[2023-06-28 15:21] VITALS: BP 112/62; PULSE 97; TEMP 36.2; O2SAT 97
== END 2023-06-28 15:39 | disposition home or self-care (01) ==
PROVIDERS: PCP Nurse Practitioner Family; Visit Provider Physician Assistant Surgical
DX: Z98.890 Other specified postprocedural states (principal)
CPT/HCPCS: 99024

== ENCOUNTER 2023-07-04 12:12 | Outpatient (AMB) | payer OTHER, SELFPAY ==
--- NOTE | 2023-07-04 12:30 | MHC.OFFVISWM ---
Intake VS Expanded 07/04/23 12:38 BP 106/65 Blood Pressure Location Rt brachial Blood Pressure Position Sitting Pulse 84 Pulse Source Pulse Oximeter Temp 97.0 F Temperature Source Temporal Artery Scan Pulse Oximetry 97 Oxygen Delivery Method Room Air Intake Visit Reasons: (OV) s/p Panniculectomy 06/15/23 Allergies oxycodone Allergy (Mild, Verified 07/04/23 12:38) Rash transparent dressing [Tegaderm] Allergy (Mild, Verified 07/04/23 12:38) Rash HPI HPI Comments History of Present Illness Details The a the patient is a pleasant 28-year-old female who returns the office today in follow-up after her panniculectomy performed on 06/15/2023. She has been documenting between 10 and 15 mL of serous fluid in the collection bulb daily. She continues antibiotics and meal plan as outlined by Dr. Ferrer. She has no complaints at today's visit. [facility] Medical History Liver fibrosis Steatosis, liver BMI 36.0-36.9,adult IUD (intrauterine device) in place BMI 37.0-37.9, adult BMI 39.0-39.9,adult Hypothyroidism Back pain Morbid obesity Surgical History History of sleeve gastrectomy History of facial surgery Hx of section History of wisdom tooth extraction, class I edentulism Family History Mother Thyroid condition Obesity Anxiety Depression Father No problems noted. Sister No problems noted. Son No problems noted. Social History Are you a primary daytime caregiver to a significant other at home: No Do you presently have visiting nurse or other home services: No Alcohol intake: current Alcohol intake frequency: holidays/special occasions only Patient Tobacco Use Status: Former Tobacco user Quit Date: 2016 Tobacco use type: Cigarette Years Smoked: <5 service: No Current occupational status: employed Physical Exam Vital Signs: Last Vital Signs Temp 97.0 F 07/04/23 12:38 Pulse 84 07/04/23 12:38 BP 106/65 07/04/23 12:38 Pulse Ox 97 07/04/23 12:38 Oxygen Delivery Method Room Air 07/04/23 12:38 GI Inspection: Yes incision (Transverse incision is healing nicely. No problems, umbilicus viable) Assessment & Plan Assessment & Plan (1) S/P panniculectomy: Comment: 06/15/23 Code(s): Z98.890 - Other specified postprocedural states Plan: Everything is healing very nicely. We will have her return to the office in approximately 1 week to have the drain removed. Continue antibiotics and meal plan. Coding Level of Care Code Global (15142) Diagnoses S/P panniculectomy Z98.890
[2023-07-04 12:38] VITALS: BP 106/65; PULSE 84; TEMP 36.1; O2SAT 97
== END 2023-07-04 12:55 | disposition home or self-care (01) ==
PROVIDERS: PCP Nurse Practitioner Family; Visit Provider Physician Assistant Surgical
DX: Z98.890 Other specified postprocedural states (principal)
CPT/HCPCS: 99024

== ENCOUNTER 2023-07-11 12:17 | Outpatient (AMB) | payer OTHER, SELFPAY ==
--- NOTE | 2023-07-11 12:30 | MHC.OFFVISWM ---
Intake VS Expanded 07/11/23 12:32 BP 105/68 Blood Pressure Location Rt brachial Blood Pressure Position Sitting Pulse 96 Pulse Source Pulse Oximeter Temp 96.8 F Temperature Source Temporal Artery Scan Pulse Oximetry 99 Oxygen Delivery Method Room Air Intake Visit Reasons: (OV) s/p Panniculectomy 06/15/23 Allergies oxycodone Allergy (Mild, Verified 07/11/23 12:35) Rash transparent dressing [Tegaderm] Allergy (Mild, Verified 07/11/23 12:35) Rash HPI HPI Comments History of Present Illness Details Patient is a pleasant 28-year-old female who returns to the office today in follow-up. She is status post panniculectomy on 06/15/2023. She was last seen approximately 1 week ago and she was having between 10 and 15 mL of serous drainage in the collection bulb on a daily basis. Today she states she is doing very well and has no complaints. She has again noted between 5 and 10 mL of fluid from the collection bulb. She continues antibiotics and is following the meal plan as outlined by Dr. Ferrer. [facility] Medical History Liver fibrosis Steatosis, liver BMI 36.0-36.9,adult IUD (intrauterine device) in place BMI 37.0-37.9, adult BMI 39.0-39.9,adult Hypothyroidism Back pain Morbid obesity Surgical History History of sleeve gastrectomy History of facial surgery Hx of section History of wisdom tooth extraction, class I edentulism Family History Mother Thyroid condition Obesity Anxiety Depression Father No problems noted. Sister No problems noted. Son No problems noted. Social History Are you a primary field care coordinator to a significant other at home: No Do you presently have visiting nurse or other home services: No Alcohol intake: current Alcohol intake frequency: holidays/special occasions only Patient Tobacco Use Status: Former Tobacco user Quit Date: 2016 Tobacco use type: Cigarette Years Smoked: <5 service: No Current occupational status: employed Physical Exam Vital Signs: Last Vital Signs Temp 96.8 F 07/11/23 12:32 Pulse 96 07/11/23 12:32 BP 105/68 07/11/23 12:32 Pulse Ox 99 07/11/23 12:32 Oxygen Delivery Method Room Air 07/11/23 12:32 GI Other: Incision is clean, dry, intact. Umbilicus is viable. Approximately 10 mL serous fluid in the collection bulb. Assessment & Plan Assessment & Plan (1) S/P panniculectomy: Comment: 06/15/23 Code(s): Z98.890 - Other specified postprocedural states Plan: Drain was removed today without incident. The insertion site was covered with a dry clean dressing. She was advised to avoid showering for 48 hours. She will continue antibiotics for 2 more weeks. She will continue her abdominal binder and return to the clinic in 2 weeks. Coding Level of Care Code Global (94347) Diagnoses S/P panniculectomy Z98.890
[2023-07-11 12:32] VITALS: BP 105/68; PULSE 96; TEMP 36; O2SAT 99
== END 2023-07-11 12:52 | disposition home or self-care (01) ==
PROVIDERS: PCP Nurse Practitioner Family; Visit Provider Physician Assistant Surgical
DX: Z98.890 Other specified postprocedural states (principal)
CPT/HCPCS: 99024

== ENCOUNTER 2023-07-25 14:14 | Outpatient (AMB) | payer OTHER, SELFPAY ==
--- NOTE | 2023-07-25 14:16 | A.OFFVIS_ITS ---
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 She is status post panniculectomy on 06/15/2023. At her last appointment her drain was removed. She is doing well and offers no complaints at today's visit. [facility] Medical History Liver fibrosis Steatosis, liver BMI 36.0-36.9,adult IUD (intrauterine device) in place BMI 37.0-37.9, adult BMI 39.0-39.9,adult Hypothyroidism Back pain Morbid obesity Surgical History S/P panniculectomy History of sleeve gastrectomy History of facial surgery Hx of section History of wisdom tooth extraction, class I edentulism Family History Mother Thyroid condition Obesity Anxiety Depression Father No problems noted. Sister No problems noted. Son No problems noted. Social History Are you a primary child care sitter to a significant other at home: No Do you presently have visiting nurse or other home services: No Alcohol intake: current Alcohol intake frequency: holidays/special occasions only Patient Tobacco Use Status: Former Tobacco user Quit Date: 2016 Tobacco use type: Cigarette Years Smoked: <5 service: No Current occupational status: employed Physical Exam GI Inspection: Yes incision (c/d/i, umbilicus viable) Assessment & Plan Assessment & Plan (1) S/P panniculectomy: Comment: 06/15/23 Code(s): Z98.890 - Other specified postprocedural states Plan: Doing very well. Continue abdominal binder. May discontinue antibiotics. Continue meal plan. Follow-up in 4-5 weeks Coding Level of Care Code Global (36258) Diagnoses S/P panniculectomy Z98.890
[2023-07-25 14:20] VITALS: BP 117/62; PULSE 102; TEMP 36.4; O2SAT 99
== END 2023-07-25 14:29 | disposition home or self-care (01) ==
PROVIDERS: PCP Nurse Practitioner Family; Visit Provider Physician Assistant Surgical
DX: Z98.890 Other specified postprocedural states (principal)
CPT/HCPCS: 99024

== ENCOUNTER 2023-09-18 12:48 | Outpatient (AMB) | payer OTHER, SELFPAY ==
--- NOTE | 2023-09-18 12:50 | A.OFFVIS_ITS ---
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 She is status post panniculectomy performed on 06/15/2023 and sleeve gastrectomy performed on 12/16/2021. Weight today is 155.4 lb with a BMI of 28.4. She is doing well and has no complaints. Meal plan: Premier protein 1/2 scoop in 8 oz alomnd milk another shake ZP bar meal 6-8 forks protein and 5 forks veg another shake Drinking 40-60 oz water Exercise plan: none yet prior to pan, stationary bike, outside walking [facility] Medical History Liver fibrosis Steatosis, liver BMI 36.0-36.9,adult IUD (intrauterine device) in place BMI 37.0-37.9, adult BMI 39.0-39.9,adult Hypothyroidism Back pain Morbid obesity Surgical History S/P panniculectomy History of sleeve gastrectomy History of facial surgery Hx of section History of wisdom tooth extraction, class I edentulism Family History Mother Thyroid condition Obesity Anxiety Depression Father No problems noted. Sister No problems noted. Son No problems noted. Social History Are you a primary health care / medical job titles to a significant other at home: No Do you presently have visiting nurse or other home services: No Alcohol intake: current Alcohol intake frequency: holidays/special occasions only Patient Tobacco Use Status: Former Tobacco user Quit Date: 2016 Tobacco use type: Cigarette Years Smoked: <5 service: No Current occupational status: employed Physical Exam Skin Other: Transverse incision well healed. Umbilicus well healed and viable. Assessment & Plan Assessment & Plan (1) S/P panniculectomy: Comment: 06/15/23 Code(s): Z98.890 - Other specified postprocedural states Plan: Patient may now exercise freely including the use of her stationary bike. She is considering joining a gym. (2) S/P laparoscopic sleeve gastrectomy: Code(s): Z98.84 - Bariatric surgery status Plan: Patient will continue current meal plan is given to her by Dr. Ferrer. We will have her follow-up with Alexandra for further meal planning. We will additionally have her follow-up with Lyndsay in December for her 2 year postop follow- up appointment. Coding Level of Care Code Est Pt Level 3 (40182) Diagnoses S/P panniculectomy Z98.890 S/P laparoscopic sleeve gastrectomy Z98.84
[2023-09-18 12:56] VITALS: BP 127/72; PULSE 101; TEMP 36.7; O2SAT 96; BMI 28.4
== END 2023-09-18 13:14 | disposition home or self-care (01) ==
PROVIDERS: PCP Nurse Practitioner Family; Referring Provider Nurse Practitioner Family; Visit Provider Physician Assistant Surgical
DX: E66.3 Overweight (principal); Z68.28 Body mass index [BMI] 28.0-28.9, adult; Z98.84 Bariatric surgery status; L98.7 Excessive and redundant skin and subcutaneous tissue
CPT/HCPCS: 99213

== ENCOUNTER 2023-10-10 13:40 | Outpatient (AMB) | payer OTHER, SELFPAY ==
--- NOTE | 2023-10-10 13:32 | MHC.AMNUTRGE ---
Intake Intake Visit Reasons: VIDEO PO LSG 12/16/21 Allergies oxycodone Allergy (Mild, Verified 07/25/23 14:21) Rash transparent dressing [Tegaderm] Allergy (Mild, Verified 07/25/23 14:21) Rash HPI Nutrition Presentation Details LSG with Dr. Nabil ARAUZ 12/16/21 Preop weight (12/10) 192# weight at 3MO 154# weight at 1 year post op 137 stays around 135# - weight maintenance s/p panniculectomy Diet Assmnt Details 2 shakes - 1/2 scoop premier in almond milk = 7.5g protein each 1 bar dinner 5:30- salad with 7 forkfuls of protein 20g protein 1 shake : 1/2 scoop with 1c almond milk Taking Celebrate MVI and calcium chewable (jeanna fusion 500mg) is meeting the JIG GRINDER SET UP OPERATOR for calcium w almond milk so she may discontinue the calcium supplement Exercise: Has been cleared to exercise, yoga on Saturdays, joined [employer] and plans to do 2x per week. 1 hour of cycling every other day Diagnosis Nutrition problem #1 overweight/obesity As related to (etiology) #1 excess energy intake and physical inactivity As evidenced by (sign/symptom) #1 high BMI (resolving) Monitoring/Goals Nutrition problem monitoring total energy intake, level of knowledge/skill, total PRO intake, total CHO intake and weight Outcome progress progressing Learning/Education Readiness to learn excellent Stages of change action Most Recent Diabetes Results: No Data to Display [facility] Medical History Liver fibrosis Steatosis, liver BMI 36.0-36.9,adult IUD (intrauterine device) in place BMI 37.0-37.9, adult BMI 39.0-39.9,adult Hypothyroidism Back pain Morbid obesity Surgical History S/P panniculectomy History of sleeve gastrectomy History of facial surgery Hx of section History of wisdom tooth extraction, class I edentulism Family History Mother Thyroid condition Obesity Anxiety Depression Father No problems noted. Sister No problems noted. Son No problems noted. Social History Are you a primary care management specialist to a significant other at home: No Do you presently have visiting nurse or other home services: No Alcohol intake: current Alcohol intake frequency: holidays/special occasions only Patient Tobacco Use Status: Former Tobacco user Quit Date: 2016 Tobacco use type: Cigarette Years Smoked: <5 service: No Current occupational status: employed Assessment & Plan Assessment & Plan (1) S/P laparoscopic sleeve gastrectomy: Code(s): Z98.84 - Bariatric surgery status Plan below Patient Instructions: f/u as scheduled with Lyndsay CHAN; plan per pt request 2 scoops in almond milk = 30g protein 1 scoop in almond milk= 15g protein 1 bar meal 1 scoop in almond milk Coding Level of Care Code Nutr Indiv Subseq (94818) Diagnoses S/P laparoscopic sleeve gastrectomy Z98.84 Time Spent (min) 25
== END 2023-10-10 13:50 | disposition home or self-care (01) ==
LOC: HO.HBS 13:41
PROVIDERS: PCP Nurse Practitioner Family; Visit Provider Dietitian, Registered
DX: Z98.84 Bariatric surgery status (principal)

== ENCOUNTER → 2023-10-10 13:40 | Outpatient (BNVA) | payer OTHER, SELFPAY | PROVIDERS: PCP Nurse Practitioner Family; Visit Provider Dietitian, Registered | DX: E66.9 Obesity, unspecified (principal); Z98.84 Bariatric surgery status; Z71.3 Dietary counseling and surveillance | CPT/HCPCS: 97803 ==

== ENCOUNTER 2023-12-14 09:54 | Outpatient (AMB) | payer OTHER, SELFPAY ==
--- NOTE | 2023-12-14 09:58 | MHC.OFFVISWM ---
VS Expanded 12/14/23 10:07 BP 110/69 Blood Pressure Location Rt brachial Blood Pressure Position Sitting Pulse 90 Pulse Source Pulse Oximeter Temp 97.2 F Temperature Source Temporal Artery Scan Pulse Oximetry 96 Oxygen Delivery Method Room Air Height 5 ft 2 in Weight 159 lb 9.6 oz BMI 29.2 Body Fat % 35.4 Body Fat Mass 56.4 Fat Free Mass 103.0 Visceral Fat Rating 5.0 Body Water % 46.5 Body Water Mass 74.0 Muscle Mass/Score 97.6 Basal Metabolic Rate/Score 1,439 Intake Visit Reasons: (OV) PO LSG 12/16/21 Allergies oxycodone Allergy (Mild, Verified 12/14/23 10:03) Rash transparent dressing [Tegaderm] Allergy (Mild, Verified 12/14/23 10:03) Rash Medication List - Last Reconciled 12/14/23 by DUSTIN Silva levothyroxine 25 mcg PO DAILY multivitamin 1 tab PO DAILY HPI Comments Details: This?is a?28?yo female who is s/p LSG 12/16/2021. Presents for 2 year post op visit. No complaints of nausea, emesis, abdominal pain or reflux, or constipation. Has gained some weight since last year but has started Crossfit and in review of [place], muscle mass and water weight up. Present meal plan includes: given at last visit by RD 1 scoop in almond milk= 15g protein x 2 shakes 1 bar - Zone Perfect meal - protein and veg takes MVI Exercise routine includes: joined [employer] for 4-5x week Did the patient ever have any of these conditions and are they resolved or still being treated? GERD: resolved SUMMER:? never DM:? never HTN:? never Hyperlipidemia:? never Post op complications:? none PFSH Medical History Liver fibrosis Steatosis, liver BMI 36.0-36.9,adult IUD (intrauterine device) in place BMI 37.0-37.9, adult BMI 39.0-39.9,adult Hypothyroidism Back pain Morbid obesity Surgical History S/P panniculectomy History of sleeve gastrectomy History of facial surgery Hx of section History of wisdom tooth extraction, class I edentulism Family History Mother Thyroid condition Obesity Anxiety Depression Father No problems noted. Sister No problems noted. Son No problems noted. Social History (Updated 12/14/23 @ 10:07 by Nicole Arellano CLIENT APPLICATION SUPPORT SPECIALIST) Are you a primary occasional caregiver to a significant other at home: No Do you presently have visiting nurse or other home services: No Alcohol intake: current Alcohol intake frequency: a few times a week Patient Tobacco Use Status: Former Tobacco user Quit Date: 2016 Tobacco use type: Cigarette Years Smoked: <5 service: No Current occupational status: employed Physical Exam Const General: cooperative, comfortable and no acute distress Orientation/consciousness: patient oriented x3 GI Other: soft, nontender, nondistended, incisions well healed, no hernia, no masses Neuro General: patient oriented x3 Assessment & Plan Assessment & Plan (1) S/P laparoscopic sleeve gastrectomy: Code(s): Z98.84 - Bariatric surgery status Category: Surgical (2) S/P panniculectomy: Comment: 06/15/23 Code(s): Z98.890 - Other specified postprocedural states Category: Surgical (3) Overweight: Code(s): E66.3 - Overweight Category: Medical Plan Pt is happy with current meal plan and exercise regimen. Does not desire any changes made today. Will order annual labs. RTC 1 year, pt can call for sooner appt if any issues arise. Patient is overweight and is not considered stable at this time. I spent a total of 30 minutes reviewing/updating records, examining the patient and counseling the patient on weight management as detailed above. Orders: Orders Insulin Today K91.2 - Postsurgical malabsorption, not elsewhere classified, Z90.3 - Acquired absence of stomach [part of] Complete Blood Count Auto Diff Today K91.2 - Postsurgical malabsorption, not elsewhere classified, Z90.3 - Acquired absence of stomach [part of] Comprehensive Met. Panel Today K91.2 - Postsurgical malabsorption, not elsewhere classified, Z90.3 - Acquired absence of stomach [part of] Vitamin B12 and Folate Today K91.2 - Postsurgical malabsorption, not elsewhere classified, Z90.3 - Acquired absence of stomach [part of] TSH reflex Free T4 Today K91.2 - Postsurgical malabsorption, not elsewhere classified, Z90.3 - Acquired absence of stomach [part of] Hemoglobin A1c Today K91.2 - Postsurgical malabsorption, not elsewhere classified, Z90.3 - Acquired absence of stomach [part of] Lipid Panel Today K91.2 - Postsurgical malabsorption, not elsewhere classified, Z90.3 - Acquired absence of stomach [part of] IRON PROFILE Today K91.2 - Postsurgical malabsorption, not elsewhere classified, Z90.3 - Acquired absence of stomach [part of] Zinc Today K91.2 - Postsurgical malabsorption, not elsewhere classified, Z90.3 - Acquired absence of stomach [part of] C Reactive Protein Today K91.2 - Postsurgical malabsorption, not elsewhere classified, Z90.3 - Acquired absence of stomach [part of] Vitamin B1 Today K91.2 - Postsurgical malabsorption, not elsewhere classified, Z90.3 - Acquired absence of stomach [part of] Vitamin A Today K91.2 - Postsurgical malabsorption, not elsewhere classified, Z90.3 - Acquired absence of stomach [part of] Ferritin Today K91.2 - Postsurgical malabsorption, not elsewhere classified, Z90.3 - Acquired absence of stomach [part of] Vitamin D 25-OH Total Today K91.2 - Postsurgical malabsorption, not elsewhere classified, Z90.3 - Acquired absence of stomach [part of]
[2023-12-14 10:07] VITALS: BP 110/69; PULSE 90; TEMP 36.2; O2SAT 96; BMI 29.2
== END 2023-12-14 10:24 | disposition home or self-care (01) ==
PROVIDERS: PCP Nurse Practitioner Family; Referring Provider Nurse Practitioner Family; Visit Provider Physician Assistant Surgical
DX: E66.3 Overweight (principal); Z68.29 Body mass index [BMI] 29.0-29.9, adult; Z90.3 Acquired absence of stomach [part of]; Z98.84 Bariatric surgery status
CPT/HCPCS: 99214